=== PATIENT | female | born 1935 | race Caucasian/White ===

== ENCOUNTER 2018-01-25 09:44 | Inpatient (IN) | payer OTHER ==
[2018-01-25 10:34] LABS: Urine Appearance CLOUDY; Urine Bilirubin NEGATIVE (NEG); Urine Blood 1+ (NEG); Urine Color YELLOW; Urine Glucose NEGATIVE (NEG); Urine Protein 1+ (NEG); Urine Specific Gravity 1.015 (1.005-1.030); Urine Urobilinogen 0.2 mg/dL (0.2-1.0); Urine pH 5.5 (5.0-7.0)
[2018-01-25 10:35] LABS: Urine Microscopic Reflex ORDER UMIC
[2018-01-25 10:37] LABS: Absolute Lymphocytes (CBC) 1.9 K/uL (0.7-4.9); Absolute Monocytes 1.6 K/uL (0.1-1.3); Absolute Neutrophil 10.4 K/uL (1.8-8.0); Basophils % 0.5 % (0-1.3); Eosinophils % 0.7 % (0-4.4); Lymphocytes % 13.4 % (15.3-44.8); MCH 30.2 pg (27.0-35.0); MCV 87.5 fL (80-100); MPV 8.8 fL (7.6-11.3); Monocytes % 11.2 % (3.3-12.3)
--- NOTE | 2018-01-25 10:42 | EKG ---
Test Date: 2018-01-25 Test Time: 09:56:24 Tetryl Blender Operator: MINERVA MEASUREMENT RESULTS: Intervals: Rate: 88 CA: 154 QRSD: 80 QT: 336 QTc: 406 [place]: P: 24 CA: 154 QRS: -38 T: 11 INTERPRETIVE STATEMENTS: Normal sinus rhythm Possible Left atrial enlargement Left axis deviation Left ventricular hypertrophy Abnormal ECG Compared to ECG 02/19/2009 06:43:26 Left-axis deviation now present Electronically Signed On 01-25-18 10:41:34 CDT by Manuel Osorio
[2018-01-25 10:45] LABS: Urine Bacteria >50 /HPF (<20); Urine Culture Reflex Order REFLEXED; Urine Mucus 1+ /HPF (NONE SEEN)
[2018-01-25 10:48] LABS: Protime INR 1.14
--- NOTE | 2018-01-25 11:05 | RAD REPORT ---
EXAM DESCRIPTION: RAD - Chest Single View - 01/25/2018 10:27 am CLINICAL HISTORY: weakness Chest pain. COMPARISON: CHEST PA AND LAT 2 VIEW dated 11/25/2011 FINDINGS: Portable technique limits examination quality. The lungs are emphysematous but clear of acute infiltrate. The heart is upper limit normal in size. N o displaced fractures.S-shaped thoracolumbar scoliosis. IMPRESSION: COPD.
[2018-01-25 11:12] LABS: ALT/SGPT 79 U/L (12-78); AST/SGOT 59 U/L (15-37); Albumin 2.8 g/dL (3.4-5.0); Alkaline Phosphatase 249 U/L (45-117); BUN Blood Urea Nitrogen 25 mg/dL (7-18); Bicarbonate 23 mmol/L (21-32); Bilirubin Direct 0.4 mg/dL (0-0.2); Bilirubin Total 1.1 mg/dL (0.2-1.0); CKMB Creatine Kinase MB < 1.0 ng/mL (0.3-3.6); Creatine Phosphokinase 41 U/L (26-192); Glucose Level 118 mg/dL (74-106); Magnesium 1.8 mg/dL (1.8-2.4); NT PRO-BNP 778 pg/mL (<450); Potassium 3.9 mmol/L (3.5-5.1); Protein, Total 7.3 g/dL (6.4-8.2); Sodium Level 138 mmol/L (136-145)
[2018-01-25] MEDS ORDERED: ACETAMINOPHEN 500 MG TAB ONE (11:21)
[2018-01-25 11:23] LABS: Blood Morphology Comment NOT SEEN (NOT SEEN); Platelet Estimate ADEQ; Urine White Blood Cell Casts OK
[2018-01-25] MEDS ORDERED: NA CHLORIDE 0.9% 500 ML ONE (11:57)
--- NOTE | 2018-01-25 12:34 | RAD REPORT ---
EXAM DESCRIPTION: CT - Abdomen Pelvis W Contrast - 01/25/2018 12:21 pm CLINICAL HISTORY: Abdominal pain with nausea. COMPARISON: none. TECHNIQUE: Computed axial tomography of the abdomen pelvis was obtained. 100 cc Isovue-300 was admin istered intravenously. Oral contrast was not requested which limits evaluation of bowel. All CT scans are performed using dose optimization technique as appropriate and may include automated exposure control or mA/KV adjustment according to patient size. FINDINGS: Several hepatic granulomata are seen. Spleen, pancreas, adrenal and kidneys appear unremarkable. Diverticula stem from the colon without evidence of diverticulitis. The gallbladder is mildly distended. Hysterectomy has been performed IMPRESSION: Mild gallbladder distention. If clinically indicated further evaluation with ultrasound could be obtained Diverticulosis without evidence of diverticulitis
--- NOTE | 2018-01-25 13:13 | ER ---
Nurse's Notes [facility] Name: Sandra Gusman Age: 82 yrs Sex: Female : 1935 Arrival Date: 01/25/2018 Time: 09:47 Bed 19 Private MD: Boston Heredia B Diagnosis: Weakness;Abdominal and pelvic pain Presentation: 01/25 09:47 Presenting complaint: Patient states: generalized weakness, dizziness, SOB, nausea for sv a few days. Denies chest pain. Pt reports that they recently told her to stop taking her Ramipril d/t low blood pressure. Transition of care: patient was not received from another setting of care. Onset of symptoms was January 23, 2018. Care prior to arrival: None. 09:47 Method Of Arrival: Wheelchair sv 09:47 Acuity: ARIEL 3 sv 10:00 Risk Assessment: Do you want to hurt yourself or someone else? Patient reports no jl7 desire to harm self or others. Initial Sepsis Screen: Does the patient meet any 2 criteria? No. Patient's initial sepsis screen is negative. Does the patient have a suspected source of infection? No. Patient's initial sepsis screen is negative. Historical: - Allergies: 09:56 Codeine; sv - PMHx: 09:56 Hypertension; sv - PSHx: 09:56 Hysterectomy; sv - Immunization history:: Adult Immunizations up to date. - Social history:: Smoking status: Patient/guardian denies using tobacco. - Ebola Screening: : No symptoms or risks identified at this time. Screenin:00 Abuse screen: Denies threats or abuse. Denies injuries from another. Nutritional jl7 screening: No deficits noted. Tuberculosis screening: No symptoms or risk factors identified. Fall Risk IV access (20 points). Gait- Weak (10 pts.). Total Collins Fall Scale indicates Low Risk Score (25-44 pts). Fall prevention measures have been instituted. Side Rails Up X 2 Placed close to Nursing Station Frequent Obs/Assesments occuring Family Present and informed to notify staff if they need to leave bedside As available Patient and Family Educated on Fall Prevention Program and strategies. Assessment: 10:00 General: Appears in no apparent distress. uncomfortable, Behavior is calm, cooperative, jl7 appropriate for age. Pain: Denies pain. Neuro: Level of Consciousness is awake, alert, obeys commands, Oriented to person, place, time, situation. Cardiovascular: Heart tones S1 S2 present Patient's skin is warm and dry. Respiratory: Airway is patent Respiratory effort is even, unlabored, Respiratory pattern is regular, symmetrical. GI: Reports anorexia. : No signs and/or symptoms were reported regarding the genitourinary system. EENT: No signs and/or symptoms were reported regarding the EENT system. Derm: Skin is pink, warm \T\ dry. 11:00 Reassessment: No changes from previously documented assessment. Patient and/or family jl7 updated on plan of care and expected duration. Pain level reassessed. Patient is alert, oriented x 3, equal unlabored respirations, skin warm/dry/pink. 12:00 Reassessment: Patient and/or family updated on plan of care and expected duration. Pain jl7 level reassessed. Patient is alert, oriented x 3, equal unlabored respirations, skin warm/dry/pink. 13:15 Reassessment: Dr. Covarrubias at bedside discussing plan of care. jl7 13:45 Reassessment: Echo at bedside. jl7 14:30 Reassessment: Dr. Covarrubias notified of BP 174/72, ordered for administration of jl7 Carvedilol 3.125 mg now. Vital Signs: 09:56 BP 159 / 84; Pulse 92; Resp 22; Pulse Ox 96% ; sv 10:30 BP 162 / 77; Pulse 85; Resp 16; Pulse Ox 98% ; jl7 10:34 Temp 97.5(O); em1 11:00 BP 143 / 74; Pulse 79; Resp 14; Pulse Ox 100% ; jl7 11:30 BP 162 / 88; Pulse 82; Resp 18; Pulse Ox 98% ; jl7 12:30 BP 162 / 59; Pulse 70; Resp 16; Pulse Ox 98% ; jl7 14:00 BP 174 / 72; Pulse 68; Resp 14; Pulse Ox 98% on R/A; jl7 ED Course: 09:47 Patient arrived in ED. sb2 09:47 Boston Heredia MD is Private Physician. sb2 09:51 Carlos Enriquez RN is Primary Nurse. jl7 09:51 Craig Davis MD is Attending Physician. kdr 09:56 Triage completed. sv 09:57 Arm band placed on right wrist. Patient placed in an exam room, on a stretcher. sv 10:00 Patient has correct armband on for positive identification. Placed in gown. Bed in low jl7 position. Call light in reach. Side rails up X2. field technical specialist on. Pulse ox on. NIBP on. Warm blanket given. 10:20 Missed attempt(s): 22 gauge in right forearm. Bleeding controlled, band aid applied, jl7 catheter tip intact. 10:25 Initial lab(s) drawn, by me, sent to lab. Urine collected: clean catch specimen, jl7 cloudy. Inserted saline lock: 22 gauge in left forearm, using aseptic technique. Blood collected. 10:26 X-ray completed. Portable x-ray completed in exam room. Patient tolerated procedure ml well. 10:27 XRAY Chest (1 view) In Process Unspecified. EDMS 11:[address] vm2 12:21 CT Abd/Pelvis - W/Contrast In Process Unspecified. EDMS 12:21 CT completed. Patient moved back from CT. vr 13:12 Winston Covarrubias DO is Hospitalizing Provider. kdr 13:23 Note: us done portable/bedside. lc3 13:24 US Abdomen Limited In Process Unspecified. EDMS 14:42 No provider procedures requiring assistance completed. Patient admitted, IV remains in jl7 place. intact, No redness/swelling at site. Administered Medications: 12:38 Drug: NS 0.9% 500 ml Route: IV; Rate: bolus; Site: left forearm; jl7 13:30 Follow up: IV Status: Completed infusion jl7 Outcome: 13:12 Decision to Hospitalize by Provider. kdr 14:41 Admitted to Tele accompanied by tech, family with patient, via wheelchair, room 204, [facility] with chart, Report called to EUN Mcintyre 14:41 Condition: stable 14:41 Discharge instructions given to patient, Instructed on the need for admit, Demonstrated understanding of instructions. 14:43 Patient left the ED. [facility] Signatures: Dispatcher [employer] Gabriela Madrigal, RN EUN Craig Davis MD MD kdr Lopez, Nahum Navarro emAnita Ruth vr Thelma Wilson Jahala, RN RN [facility] Jamil, Anita vm2 Billeau, Sulma sb2
--- NOTE | 2018-01-25 13:13 | EDPHYS ---
Physician Documentation [facility] Name: Sandra Gusman Age: 82 yrs Sex: Female : 1935 Arrival Date: 01/25/2018 Time: 09:47 Bed 19 Private MD: Boston Heredia B ED Physician Craig Davis HPI: 01/25 15:41 This 82 yrs old Female presents to ER via Wheelchair with complaints of kdr General Weakness. 15:41 The patient does not have any focal c/o in the ED. She has been globally weak and not kdr eating for the last four days. Onset: The symptoms/episode began/occurred gradually, 4 day(s) ago. Severity of symptoms: At their worst the symptoms were mild in the emergency department the symptoms are unchanged. The patient has not experienced similar symptoms in the past. The patient has not recently seen a physician. Historical: - Allergies: 09:56 Codeine; sv - PMHx: 09:56 Hypertension; sv - PSHx: 09:56 Hysterectomy; sv - Immunization history:: Adult Immunizations up to date. - Social history:: Smoking status: Patient/guardian denies using tobacco. - Ebola Screening: : No symptoms or risks identified at this time. ROS: 15:41 Constitutional: Negative for fever, chills, and weight loss, Eyes: Negative for injury, kdr pain, redness, and discharge, ENT: Negative for injury, pain, and discharge, Neck: Negative for injury, pain, and swelling, Cardiovascular: Negative for chest pain, palpitations, and edema, Respiratory: Negative for shortness of breath, cough, wheezing, and pleuritic chest pain, Back: Negative for injury and pain, : Negative for injury, bleeding, discharge, and swelling, MS/Extremity: Negative for injury and deformity, Skin: Negative for injury, rash, and discoloration, Neuro: Negative for headache, weakness, numbness, tingling, and seizure activity. Psych: Negative for depression, anxiety, suicide ideation, homicidal ideation, and hallucinations, Allergy/Immunology: Negative for hives, rash, and allergies, Endocrine: Negative for neck swelling, polydipsia, polyuria, polyphagia, and marked weight changes, Hematologic/Lymphatic: Negative for swollen nodes, abnormal bleeding, and unusual bruising. Exam: 15:45 Constitutional: This is a well developed, well nourished patient who is awake, alert, kdr and in no acute distress. Head/Face: Normocephalic, atraumatic. Eyes: Pupils equal round and reactive to light, extra-ocular motions intact. Lids and lashes normal. Conjunctiva and sclera are non-icteric and not injected. Cornea within normal limits. Periorbital areas with no swelling, redness, or edema. Neck: Trachea midline, no thyromegaly or masses palpated, and no cervical lymphadenopathy. Supple, full range of motion without nuchal rigidity, or vertebral point tenderness. No Meningismus. Chest/axilla: Normal chest wall appearance and motion. Nontender with no deformity. No lesions are appreciated. Cardiovascular: Regular rate and rhythm with a normal S1 and S2. No gallops, murmurs, or rubs. Normal PMI, no JVD. No pulse deficits. Respiratory: Lungs have equal breath sounds bilaterally, clear to auscultation and percussion. No rales, rhonchi or wheezes noted. No increased work of breathing, no retractions or nasal flaring. Back: No spinal tenderness. No costovertebral tenderness. Full range of motion. Skin: Warm, dry with normal turgor. Normal color with no rashes, no lesions, and no evidence of cellulitis. MS/ Extremity: Pulses equal, no cyanosis. Neurovascular intact. Full, normal range of motion. Neuro: Awake and alert, GCS 15, oriented to person, place, time, and situation. Cranial nerves II-XII grossly intact. Motor strength 5/5 in all extremities. Sensory grossly intact. Cerebellar exam normal. Normal gait. Psych: Awake, alert, with orientation to person, place and time. Behavior, mood, and affect are within normal limits. 15:45 Abdomen/GI: Inspection: distension, that is mild, Bowel sounds: active, Palpation: soft, mild abdominal tenderness, in all quadrants. Vital Signs: 09:56 BP 159 / 84; Pulse 92; Resp 22; Pulse Ox 96% ; sv 10:30 BP 162 / 77; Pulse 85; Resp 16; Pulse Ox 98% ; jl7 10:34 Temp 97.5(O); em1 11:00 BP 143 / 74; Pulse 79; Resp 14; Pulse Ox 100% ; jl7 11:30 BP 162 / 88; Pulse 82; Resp 18; Pulse Ox 98% ; jl7 12:30 BP 162 / 59; Pulse 70; Resp 16; Pulse Ox 98% ; jl7 14:00 BP 174 / 72; Pulse 68; Resp 14; Pulse Ox 98% on R/A; jl7 MDM: 13:12 Patient medically screened. kdr 15:45 Data reviewed: vital signs, nurses notes, lab test result(s), radiologic studies. kdr Counseling: I had a detailed discussion with the patient and/or guardian regarding: the historical points, exam findings, and any diagnostic results supporting the discharge/admit diagnosis, lab results, radiology results, the need for outpatient follow up. 01/25 09:58 Order name: Basic Metabolic Panel; Complete Time: 11:28 kdr 01/25 09:58 Order name: CBC with Diff; Complete Time: 11:28 kdr 01/25 09:58 Order name: Ckmb; Complete Time: 11:28 kdr 01/25 09:58 Order name: CPK; Complete Time: 11:28 kdr 01/25 09:58 Order name: LFT's; Complete Time: 11:28 kdr 01/25 09:58 Order name: Magnesium; Complete Time: 11:28 kdr 01/25 09:58 Order name: NT PRO-BNP; Complete Time: 11:28 kdr 01/25 09:58 Order name: PT-INR; Complete Time: 11:28 kdr 01/25 09:58 Order name: Ptt, Activated; Complete Time: 11:28 kdr 01/25 09:58 Order name: Troponin (emerg Dept Use Only); Complete Time: 11:28 kdr 01/25 10:23 Order name: UA; Complete Time: 11:28 em1 01/25 10:37 Order name: Urine Microscopic Only; Complete Time: 11:28 EDMS 01/25 10:42 Order name: CBC Smear Scan; Complete Time: 11:28 EDMS 01/25 10:46 Order name: Urine Culture EDMS 01/25 09:58 Order name: XRAY Chest (1 view); Complete Time: 11:28 kdr 01/25 09:58 Order name: EKG; Complete Time: 09:58 kdr 01/25 09:58 Order name: Cardiac monitoring; Complete Time: 10:29 kdr 01/25 09:58 Order name: EKG - Nurse/Tech; Complete Time: 10:29 kdr 01/25 09:58 Order name: IV Saline Lock; Complete Time: 10:29 [facility] 01/25 09:58 Order name: Labs collected and sent; Complete Time: 10:29 [facility] 01/25 09:58 Order name: O2 Per Protocol; Complete Time: 10:29 [facility] 01/25 09:58 Order name: O2 Sat Monitoring; Complete Time: 10:29 [facility] 01/25 09:58 Order name: Urine Dipstick-Ancillary (obtain specimen); Complete Time: 10:28 [facility] 01/25 11:41 Order name: CT Abd/Pelvis - W/Contrast; Complete Time: 12:48 [facility] 01/25 11:42 Order name: Hepatitis Panel [facility] 01/25 11:42 Order name: Hepatitis Panel,Acute EDWA 01/25 12:49 Order name: Urinalysis [facility] 01/25 13:06 Order name: US Abdomen Limited [facility] 01/25 14:11 Order name: US; Complete Time: 15:44 EDMS Administered Medications: 12:38 Drug: NS 0.9% 500 ml Route: IV; Rate: bolus; Site: left forearm; [facility] emergency room 13:30 Follow up: IV Status: Completed infusion jl7 Disposition: 01/25/18 13:12 Hospitalization ordered by Winston Covarrubias for Observation. Preliminary diagnosis are Weakness, Abdominal and pelvic pain. - Bed requested for Telemetry/MedSurg (observation). - Status is Observation. 7 - Condition is Fair. - Problem is new. - Symptoms have improved. UTI on Admission? Yes Signatures: Dispatcher [employer] EDWA Gabriela Yu RN Honey Rodriguez RN EUN Craig Davis MD MD kdr Leal, Jahala, RN RN jl7 Brandie Callahan Corrections: (The following items were deleted from the chart) 13:15 13:12 Hospitalization Ordered by Winston Covarrubias DO for Observation. Preliminary eb diagnosis is Weakness; Abdominal and pelvic pain. Bed requested for Telemetry/MedSurg (observation). Status is Observation. Condition is Fair. Problem is new. Symptoms have improved. UTI on Admission? Yes. kdr 13:48 13:15 01/25/2018 13:12 Hospitalization Ordered by Winston Covarrubias DO for Observation. Preliminary diagnosis is Weakness; Abdominal and pelvic pain. Bed requested for Telemetry/MedSurg (observation). Status is Observation. Condition is Fair. Problem is new. Symptoms have improved. UTI on Admission? Yes. 14:43 13:48 01/25/2018 13:12 Hospitalization Ordered by Winston Covarrubias DO for Observation. jl7 Preliminary diagnosis is Weakness; Abdominal and pelvic pain. Bed requested for Telemetry/MedSurg (observation). Status is Observation. Condition is Fair. Problem is new. Symptoms have improved. UTI on Admission? Yes. dw
[2018-01-25] MEDS ORDERED: ONDANSETRON 4 MG/2 ML VIAL IV PRN (13:32)
--- NOTE | 2018-01-25 13:43 | P.HP ---
Certification for Inpatient Patient admitted to: Observation With expected LOS: <2 Midnights Patient will require the following post-hospital care: None Practitioner: I am a practitioner with admitting privileges, knowledge of patient current condition, hospital course, and medical plan of care. Services: Services provided to patient in accordance with Admission requirements found in Title 42 Section 412.3 of the Code of Federal Regulations Patient History Date of Service: 01/25/18 Primary Care Provider: Dr. Heredia Reason for admission: Fatigue, poor appetite History of Present Illness: 82-year-old female presented to the ER with fatigue and poor appetite. Patient reports that this all started last week. She saw her PCP on . Apparently her blood pressure was low at that time. She was taken off her blood pressure medication including ramipril 20 mg BID and hydrochlorothiazide 25 mg daily. Since that time she has had poor appetite. Weakness noted. Some nausea was noted this morning. She reported some abdominal discomfort. No diarrhea, fever or chills noted. Patient had some dizziness. The patient came to the ER for further evaluation. In the ER patient was evaluated. Blood pressures were slightly elevated. White count 13.9, hemoglobin 14.5. Percent neutrophils elevated at 74 with absolute neutrophils at 10. BUN of 25, creatinine 1.2 with a GFR 43. Glucose 118. Total bilirubin 1.1, direct bilirubin 0.4, AST of 59, ALT 79. BNP 778. Troponin less than 0.02. Chest x-ray showed no pneumonia. Abdominal CT scan showed mild distention of the gallbladder otherwise unremarkable. Patient was given IV fluids in the emergency room. The patient was admitted for observation. When I saw the patient ER, she appeared comfortable. She denies any nausea, vomiting or abdominal pain at this time. Patient with history of hypertension, arthritis, osteoarthritis and chronic steroid use. Patient reports a chronic cough. Home medications list reviewed: Yes - Past Medical/Surgical History Diabetic: No -: Hypertension -: Chronic arthritis, chronic steroid use -: Hyperlipidemia -: Hysterectomy -: Appendectomy Psychosocial/ Personal History: The patient lives by herself. She is a . She has 2 children. - Family History Family History: Reviewed- Non-Contributory - Social History Smoking Status: Never smoker Alcohol use: No CD- Drugs: No Caffeine use: Yes Place of Residence: Home Review of Systems General: Weakness, Malaise Eyes: Unremarkable ENT: Unremarkable Respiratory: Cough, Unremarkable Cardiovascular: Unremarkable Gastrointestinal: Nausea, As per HPI Genitourinary: As per HPI Musculoskeletal: Unremarkable Integumentary: Unremarkable Neurological: Unremarkable Lymphatics: Unremarkable Physical Examination - Physical Exam General: Alert, In no apparent distress, Oriented x3, Cooperative HEENT: Atraumatic, Normocephalic, PERRLA, Other (Dry mucous membranes) Neck: Supple, No Thyromegaly Respiratory: Clear to auscultation bilaterally, Normal air movement Cardiovascular: Normal pulses, Regular rate/rhythm Gastrointestinal: Normal bowel sounds, Soft and benign, Non-distended, No tenderness, No masses, No rebound, No guarding Musculoskeletal: No contractures, No erythema, No tenderness, No warmth Integumentary: No tenderness/swelling, No erythema, No warmth, No cyanosis Neurological: Normal speech, Normal strength at 5/5 x4 extr, Normal tone, Normal affect - Studies Laboratory Data (last 24 hrs) 01/25/18 10:25: PT 13.5 H, INR 1.14, APTT 24.1 L 01/25/18 10:25: WBC 13.9 H, Hgb 14.5, Hct 42.0, Plt Count 231 01/25/18 10:25: Sodium 138, Potassium 3.9, BUN 25 H, Creatinine 1.20, Glucose 118 H, Magnesium 1.8, Total Bilirubin 1.1 H, AST 59 H, ALT 79 H, Alkaline Phosphatase 249 H Assessment and Plan - Problems (Diagnosis) (1) UTI (urinary tract infection) Current Visit: Yes Status: Acute Plan: Fatigue and poor appetite likely from UTI. Will start Rocephin. Urine and blood cultures obtained. Will start IV fluids. Will monitor electrolytes. Will reassess tomorrow. Anticipate discharge in the next 1-2 days. Qualifiers: Urinary tract infection type: site unspecified Hematuria presence: without hematuria Qualified Code(s): N39.0 - Urinary tract infection, site not specified (2) Fatigue Current Visit: Yes Status: Acute Plan: Will check tsh. Patient likely with UTI. Mild dehydration noted. Continue with antibiotics, IV fluids. Patient with history of hypertension. Adjustments in medications have been done. Will check echocardiogram. Will send for hepatitis panel. Qualifiers: Fatigue type: unspecified Qualified Code(s): R53.83 - Other fatigue (3) Hyperbilirubinemia Current Visit: Yes Status: Acute Plan: Likely from dehydration. Will continue monitor and assess. Abdominal ultrasound obtained. CT scan showed mild gallbladder distension. Doubt cholecystitis. (4) Elevated liver function tests Current Visit: Yes Status: Acute Plan: Mild gallbladder distention noted. Patient on Crestor. Will hold Crestor this time. Will check hepatitis panel. Obtain abdominal ultrasound to further assess. (5) Renal insufficiency Current Visit: Yes Status: Acute Plan: Likely from dehydration and recent Damian inhibitor and hydrochlorothiazide use. Will discontinue DAMIAN-inhibitor and hydrochlorothiazide. Patient with likely Damian cough. Will provide IV fluids. Will check echocardiogram to further evaluate her hypertension. (6) Hypertension Current Visit: Yes Status: Chronic Plan: Medications adjusted due to renal insufficiency and DAMIAN-inhibitor cough. Lisinopril and hydrochlorothiazide has been discontinued. Provide carvedilol for blood pressure control. Obtain echocardiogram. Qualifiers: Hypertension type: essential hypertension Qualified Code(s): I10 - Essential (primary) hypertension (7) DAMIAN-inhibitor cough Current Visit: Yes Status: Acute Plan: Discontinued DAMIAN-inhibitor. Continue as above. (8) Hyperlipidemia Current Visit: Yes Status: Chronic Plan: Will check fasting lipid panel. Will hold Crestor at this time due to elevated liver function. Qualifiers: Hyperlipidemia type: unspecified Qualified Code(s): E78.5 - Hyperlipidemia , unspecified (9) Arthritis Current Visit: Yes Status: Chronic Plan: Provide medication for pain. Patient on chronic steroids. Will restart steroids. (10) Chronic steroid use Current Visit: Yes Status: Chronic Plan: Patient takes prednisone 2 mg daily. Will restart. Will recommend steroids to be tapered off over time. This can be done as an outpatient. (11) GERD (gastroesophageal reflux disease) Current Visit: Yes Status: Suspected Plan: Will provide PPI due to chronic steroid use. Qualifiers: Esophagitis presence: esophagitis presence not specified Qualified Code(s) : K21.9 - Gastro-esophageal reflux disease without esophagitis (12) Dehydration Current Visit: Yes Status: Acute Plan: Continue IV fluids. Will monitor and adjust medication and electrolytes. Discharge Plan: Home Plan to discharge in: 24 Hours - Advance Directives Does patient have a Living Will: Yes Does patient have a Durable POA for Healthcare: Yes - Code Status/Comfort Care Code Status Assessed: Yes (Patient full code.) Time Spent Managing Pts Care (In Minutes): 55
--- NOTE | 2018-01-25 14:10 | RAD REPORT ---
EXAM DESCRIPTION: US - Abdomen Exam Complete - 01/25/2018 1:58 pm CLINICAL HISTORY: Abdominal pain. ABD PAIN COMPARISON: Abdomen Pelvis Scan dated 11/24/2016; Abdomen Pelvis W Contrast dated 01/25/2018 FINDINGS: Mild fatty liver infiltration suspected. No focal liver lesions or intrahepatic biliary di latation is seen. The gallbladder demonstrates no gallstones, pericholecystic fluid or gallbladder wall thickening. Co mmon bile duct is normal in caliber measuring 3 mm. Both kidneys are normal in size, shape and echotexture. No hydronephrosis, focal lesion of concern or perinephric fluid. The spleen is normal in size measuring 10 cm. The pancreas and aorta are obscured by bowel gas. The visualized aspects of the IVC are grossly normal. IMPRESSION: Fatty liver. Negative gallbladder/biliary tree findings.
[2018-01-25] MEDS ORDERED: CARVEDILOL 6.25 MG TAB ONE (14:38)
[2018-01-25] MEDS: ENOXAPARIN 40 MG/0.4 ML SQ SCH (16:09)
[2018-01-25] MEDS: CEFTRIAXONE/SWI 1gm 1 GM/10 ML SYR IVP SCH (16:10)
[2018-01-25] MEDS: NA CHLORIDE 0.9% 1,000 ML IV SCH ×3 (16:17→23:45)
--- NOTE | 2018-01-25 16:24 | ECHO ---
HEIGHT: 4 ft 11 in WEIGHT: 138 lb 8 oz DATE OF STUDY: 01/25/[address]: Winston Covarrubias DO 2-DIMENSIONAL: YES M.MODE: YES DOPPLER: YES COLOR FLOW: YES TDS: PORTABLE: DEFINITY: BUBBLE STUDY: DIAGNOSIS: HYPERTENSION, FATIGUE CARDIAC HISTORY: CATHERIZATION: NO SURGERY: NO PROSTHETIC VALVE: NO PACEMAKER: NO MEASUREMENTS (cm) DIASTOLIC (NORMALS) SYSTOLIC (NORMALS) IVSd 1.0 (0.6-1.2) LA Diam 3.5 (1.9-4.0) LVEF 60-65% LVIDd 3.5 (3.5-5.7) LVIDs 2.6 (2.0-3.5) %FS 25% LVPWd 0.9 (0.6-1.2) Ao Diam 2.6 (2.0-3.7) 2 DIMENSIONAL ASSESSMENT: RIGHT ATRIUM: NORMAL LEFT ATRIUM: NORMAL RIGHT VENTRICLE: NORMAL LEFT VENTRICLE: NORMAL TRICUSPID VALVE: NORMAL MITRAL VALVE: MITRAL ANNULAR CALCIFICATION PULMONIC VALVE: NORMAL AORTIC VALVE: NORMAL PERICARDIAL EFFUSION: NONE AORTIC ROOT: NORMAL LEFT VENTRICULAR WALL MOTION: NORMAL DOPPLER/COLOR FLOW: MILD TRICUSPID REGURGITATION. NORMAL RIGHT VENTRICULAR SYSTOLIC PRESSURE. COMMENTS: NORMAL LEFT VENTRICULAR EJECTION FRACTION. MITRAL ANNULAR CALCIFICATION. OTHERWISE NORMAL TWO DIMENSIONAL ECHOCARDIOGRAM. MILD TRICUSPID REGURGITATION. TECHNOLOGIST: SURJIT CROWLEY
[2018-01-25] MEDS ORDERED: POTASSIUM 25 MEQ EFFERV TAB PO ONE (17:00)
[2018-01-25] MEDS ORDERED: MAGNESIUM SULFATE 1 gm IVPB 1 GM/100 ML BAG IV ONE (17:00)
[2018-01-25] MEDS: CARVEDILOL 3.125 MG TAB PO SCH (17:06)
[2018-01-25] MEDS: BENZONATATE 100 MG CAP PO PRN (18:44)
[2018-01-25] MEDS: ACETAMINOPHEN 500 MG TAB PO PRN (18:56)
[2018-01-25] MEDS ORDERED: ZOLPIDEM TARTRATE 6.25 MG PO SCH (21:00)
[2018-01-25] MEDS ORDERED: ZOLPIDEM TARTRATE 5 MG TABLET ONE (22:32)
[2018-01-26] MEDS: CARVEDILOL 3.125 MG TAB PO SCH ×2 (05:41→18:00)
[2018-01-26 05:59] LABS: Absolute Lymphocytes (CBC) 1.2 K/uL (0.7-4.9); Absolute Monocytes 0.9 K/uL (0.1-1.3); Absolute Neutrophil 28.3 K/uL (1.8-8.0); Basophils % 0.2 % (0-1.3); Eosinophils % 0.3 % (0-4.4); Hematocrit 35.5 % (36.0-45.0); MCV 88.4 fL (80-100); MPV 8.9 fL (7.6-11.3); Monocytes % 2.9 % (3.3-12.3); RBC Red Blood Cell Count 4.01 M/uL (3.86-4.86)
[2018-01-26 06:09] LABS: Albumin 2.1 g/dL (3.4-5.0); Bilirubin Total 0.9 mg/dL (0.2-1.0); Magnesium 2.3 mg/dL (1.8-2.4); Potassium 4.7 mmol/L (3.5-5.1); Protein, Total 5.8 g/dL (6.4-8.2); Thyroid Stimulating Hormone 1.18 uIU/mL (0.36-3.74)
[2018-01-26] MEDS: PANTOPRAZOLE 40MG TABLET PO SCH (07:10)
[2018-01-26 08:23] LABS: Blood Morphology Comment NOT SEEN (NOT SEEN); Platelet Estimate ADEQ
[2018-01-26] MEDS: CEFTRIAXONE/SWI 1gm 1 GM/10 ML SYR IVP SCH (09:00)
--- NOTE | 2018-01-26 09:36 | P.PN ---
Subjective Date of Service: 01/26/18 Primary Care Provider: Dr. Heredia Chief Complaint: Fatigue, poor appetite Subjective: Doing well (Feeling better. Slight fatigue. Cough noted.) Physical Examination - Vital Signs Temperature: 97.4 F Blood Pressure: 116/58 Pulse: 70 Respirations: 20 Pulse Ox (%): 97 - Physical Exam General: Alert, In no apparent distress, Oriented x3, Cooperative HEENT: Atraumatic Neck: Supple Respiratory: Clear to auscultation bilaterally, Normal air movement Cardiovascular: Normal pulses, Regular rate/rhythm Gastrointestinal: Normal bowel sounds, Soft and benign, Non-distended, No tenderness, No masses, No rebound, No guarding Musculoskeletal: No erythema, No tenderness, No warmth Integumentary: No tenderness/swelling, No erythema, No warmth, No cyanosis Neurological: Normal speech, Normal strength at 5/5 x4 extr, Normal tone, Normal affect - Studies Laboratory Data (last 24 hrs) 01/25/18 10:25: PT 13.5 H, INR 1.14, APTT 24.1 L 01/25/18 10:25: WBC 13.9 H, Hgb 14.5, Hct 42.0, Plt Count 231 01/25/18 10:25: Sodium 138, Potassium 3.9, BUN 25 H, Creatinine 1.20, Glucose 118 H, Magnesium 1.8, Total Bilirubin 1.1 H, AST 59 H, ALT 79 H, Alkaline Phosphatase 249 H Medications List Reviewed: Yes Assessment & Plan - Problems (Diagnosis) (1) UTI (urinary tract infection) Current Visit: Yes Status: Acute Plan: Fatigue and poor appetite likely from UTI. Will change Rocephin to Zosyn for better coverage. White count elevated. Will check lactic acid. Pro calcitonin elevated. Urine and blood cultures obtained. Will continue IV fluids. Will reassess tomorrow. Qualifiers: Urinary tract infection type: site unspecified Hematuria presence: without hematuria Qualified Code(s): N39.0 - Urinary tract infection, site not specified (2) Fatigue Current Visit: Yes Status: Acute Plan: Continue with antibiotics for UTI. Continue IV fluids. Abdominal ultrasound shows no hydronephrosis. Abdominal evaluation unremarkable. Await urine and blood cultures. Will check lactic acid. Pro calcitonin elevated. Qualifiers: Fatigue type: unspecified Qualified Code(s): R53.83 - Other fatigue (3) Hyperbilirubinemia Current Visit: Yes Status: Acute Plan: This has improved. Abdominal ultrasound unremarkable. (4) Elevated liver function tests Current Visit: Yes Status: Acute Plan: This has improved. Abdominal sound negative. Lab sent for Hepatitis. (5) Renal insufficiency Current Visit: Yes Status: Acute Plan: Likely from dehydration and recent Damian inhibitor and hydrochlorothiazide use. Renal function remained stable. Patient may have underlying chronic renal disease. DAMIAN-inhibitor and hydrochlorothiazide has been discontinued. Renal ultrasound shows no hydronephrosis. Will monitor closely. Patient may require nephrology consultation. Will reassess tomorrow. (6) Hypertension Current Visit: Yes Status: Chronic Plan: Medications adjusted due to renal insufficiency and DAMIAN-inhibitor cough. Lisinopril and hydrochlorothiazide has been discontinued. Blood pressure stable on carvedilol. Echocardiogram unremarkable. Qualifiers: Hypertension type: essential hypertension Qualified Code(s): I10 - Essential (primary) hypertension (7) DAMIAN-inhibitor cough Current Visit: Yes Status: Acute Plan: Discontinued DAMIAN-inhibitor. Continue as above. (8) Hyperlipidemia Current Visit: Yes Status: Chronic Plan: Continue to hold Crestor. Qualifiers: Hyperlipidemia type: unspecified Qualified Code(s): E78.5 - Hyperlipidemia , unspecified (9) Arthritis Current Visit: Yes Status: Chronic Plan: Will provide medication as needed. Patient on chronic steroids. This has been restarted. Steroid should be tapered off over time. (10) Chronic steroid use Current Visit: Yes Status: Chronic Plan: Patient takes prednisone 2 mg daily. Will restart. Will recommend steroids to be tapered off over time. This can be done as an outpatient. (11) GERD (gastroesophageal reflux disease) Current Visit: Yes Status: Suspected Plan: Will provide PPI due to chronic steroid use. Qualifiers: Esophagitis presence: esophagitis presence not specified Qualified Code(s) : K21.9 - Gastro-esophageal reflux disease without esophagitis (12) Dehydration Current Visit: Yes Status: Acute Plan: Continue IV fluids. Pro calcitonin elevated. Will check lactic acid. Continue IV fluids and antibiotic therapy. Await urine and blood cultures. (13) Sepsis Current Visit: Yes Status: Suspected Plan: Suspect early sepsis. Pro calcitonin elevated. Urine and blood cultures obtained. IV antibiotic therapy adjusted. (14) Chronic renal disease Current Visit: Yes Status: Suspected Plan: Will monitor closely. Will consider nephrology consultation if no improvement tomorrow. Qualifiers: Chronic kidney disease stage: stage 2 (mild) Qualified Code(s): N18.2 - Chronic kidney disease, stage 2 (mild) (15) COPD (chronic obstructive pulmonary disease) Current Visit: Yes Status: Suspected Plan: Patient with chronic cough. Chest x-ray showed COPD changes. Patient with secondhand smoke exposure. Will provide medication. Patient will need pulmonology evaluation with pulmonary function test as an outpatient. Qualifiers: COPD type: chronic bronchitis Chronic bronchitis type: unspecified Qualified Code(s): J42 - Unspecified chronic bronchitis Discharge Plan: Home Plan to discharge in: Greater than 2 days Time Spent Managing Pts Care (In Minutes): 55
[2018-01-26] MEDS ORDERED: ALBUTEROL 2.5 MG/3 ML NEB SOL NEB PRN (09:38)
[2018-01-26] MEDS ORDERED: IPRATROPIUM BROM 0.5MG/2.5ML NEB PRN (09:38)
[2018-01-26] MEDS: NA CHLORIDE 0.9% 1,000 ML IV SCH ×3 (10:00→21:06)
[2018-01-26] MEDS: ENOXAPARIN 40 MG/0.4 ML SQ SCH (10:15)
[2018-01-26] MEDS: predniSONE 1 MG TAB PO SCH (10:15)
--- NOTE | 2018-01-26 10:18 | RAD REPORT ---
EXAM DESCRIPTION: RAD - Chest Pa And Lat (2 Views) - 01/26/2018 9:29 am CLINICAL HISTORY: cough Chest pain. COMPARISON: Chest Single View dated 01/25/2018; CHEST PA AND LAT 2 VIEW dated 11/25/2011 FINDINGS: Interstitial prominence is noted superimposed on diffuse COPD. Findings are likely chronic . No focal infiltrate is detected. The heart is normal in size. No displaced fractures. Tortuous thor acic aorta with atherosclerosis noted. IMPRESSION: COPD with fibrotic changes noted bilaterally, likely chronic.
[2018-01-26] MEDS: PIPER/TAZO/NS 2.25gm 2.25 GM/50 ML BAG IVPB SCH (18:19)
[2018-01-26] MEDS: BENZONATATE 100 MG CAP PO PRN (18:25)
[2018-01-26] MEDS: ARFORMOTEROL TARTRATE 15 MCG/2 ML VIAL.NEB NEB SCH (20:04)
[2018-01-26] MEDS: ZOLPIDEM TARTRATE 5 MG TABLET PO SCH (21:05)
[2018-01-27] MEDS: PIPER/TAZO/NS 2.25gm 2.25 GM/50 ML BAG IVPB SCH ×2 (00:59→09:52)
[2018-01-27] MEDS: BENZONATATE 100 MG CAP PO PRN ×3 (00:59→21:49)
[2018-01-27 05:13] LABS: Absolute Lymphocytes (CBC) 2.1 K/uL (0.7-4.9); Absolute Neutrophil 13.8 K/uL (1.8-8.0); Basophils % 0.2 % (0-1.3); Eosinophils % 2.1 % (0-4.4); Hematocrit 34.1 % (36.0-45.0); Lymphocytes % 12.1 % (15.3-44.8); MCV 89.1 fL (80-100); MPV 8.7 fL (7.6-11.3); Monocytes % 5.6 % (3.3-12.3); RBC Red Blood Cell Count 3.83 M/uL (3.86-4.86)
[2018-01-27 05:37] LABS: Albumin 2.2 g/dL (3.4-5.0); Bilirubin Total 0.8 mg/dL (0.2-1.0); Magnesium 2.2 mg/dL (1.8-2.4); Potassium 4.1 mmol/L (3.5-5.1); Protein, Total 5.7 g/dL (6.4-8.2)
[2018-01-27] MEDS: CARVEDILOL 3.125 MG TAB PO SCH ×2 (05:43→18:36)
[2018-01-27] MEDS: PANTOPRAZOLE 40MG TABLET PO SCH (05:44)
[2018-01-27] MEDS: NA CHLORIDE 0.9% 1,000 ML IV SCH (05:44)
[2018-01-27] MEDS: guaiFENesin 100 MG/5 ML UCUP PO PRN ×3 (06:10→21:50)
[2018-01-27] MEDS: ARFORMOTEROL TARTRATE 15 MCG/2 ML VIAL.NEB NEB SCH ×2 (07:47→19:35)
[2018-01-27] MEDS: predniSONE 1 MG TAB PO SCH (09:52)
[2018-01-27] MEDS: ENOXAPARIN 30 MG/0.3 ML SQ SCH (09:53)
--- NOTE | 2018-01-27 10:34 | P.PN ---
Subjective Date of Service: 01/27/18 Primary Care Provider: Dr. Heredia Chief Complaint: Fatigue, poor appetite Subjective: Other (Patient with some fatigue this morning. Patient afebrile. So far blood cultures negative. Urine culture positive for E coli.) Physical Examination - Vital Signs Temperature: 98.3 F Blood Pressure: 130/60 Pulse: 64 Respirations: 18 Pulse Ox (%): 95 - Physical Exam General: Alert, In no apparent distress, Oriented x3, Cooperative HEENT: Atraumatic Neck: Supple Respiratory: Clear to auscultation bilaterally, Normal air movement Cardiovascular: Normal pulses, Regular rate/rhythm Gastrointestinal: Normal bowel sounds, Soft and benign, Non-distended, No tenderness, No masses, No rebound, No guarding Musculoskeletal: No erythema, No tenderness, No warmth Integumentary: No tenderness/swelling, No erythema, No warmth, No cyanosis Neurological: Normal speech, Normal strength at 5/5 x4 extr, Normal tone, Normal affect - Studies Microbiology Data (last 24 hrs): 01/25/18 10:15 Clean Catch Urine [place] Count - Final >100,000 CFU/ML. 01/25/18 10:15 Clean Catch Urine - Final Escherichia Coli 01/25/18 16:03 Blood - Blood Anaerobic Blood Culture - Final 01/25/18 15:23 Blood - Blood Anaerobic Blood Culture - Final Medications List Reviewed: Yes Assessment & Plan - Problems (Diagnosis) (1) UTI (urinary tract infection) Onset Date: 01/26/18 Current Visit: Yes Status: Acute Plan: Urine culture positive for E coli. White count improved. Patient afebrile. So far blood cultures negative. Will continue with IV fluids. Will transition off Zosyn to Cipro orally. Will ambulate patient physical therapy. Will reassess this afternoon. Possible discharge in the next 24 hr. UTI prevention addressed in detail. Patient reports that she has been cleaning herself from the back to the front. This is the likely cause of her UTI. Family at bedside Qualifiers: Urinary tract infection type: site unspecified Hematuria presence: without hematuria Qualified Code(s): N39.0 - Urinary tract infection, site not specified (2) Fatigue Onset Date: 01/26/18 Current Visit: Yes Status: Acute Plan: Secondary to UTI . Continue as above. Qualifiers: Fatigue type: unspecified Qualified Code(s): R53.83 - Other fatigue (3) Hyperbilirubinemia Onset Date: 01/26/18 Current Visit: Yes Status: Acute Plan: This has improved. Abdominal ultrasound unremarkable. (4) Elevated liver function tests Onset Date: 01/26/18 Current Visit: Yes Status: Acute Plan: This has improved. Abdominal sound negative. Lab sent for Hepatitis. (5) Renal insufficiency Onset Date: 01/26/18 Current Visit: Yes Status: Acute Plan: Acute renal injury likely from dehydration, ZOLTAN-inhibitor, hydrochlorothiazide, UTI. Renal function improved. Renal ultrasound shows no hydronephrosis. Continue to hold ZOLTAN-inhibitor and hydrochlorothiazide. UTI identified. Continue as above. (6) Hypertension Onset Date: 01/26/18 Current Visit: Yes Status: Chronic Plan: Medications adjusted due to renal insufficiency and ZOLTAN-inhibitor cough. Lisinopril and hydrochlorothiazide has been discontinued. Blood pressure stable on carvedilol. Echocardiogram unremarkable. Qualifiers: Hypertension type: essential hypertension Qualified Code(s): I10 - Essential (primary) hypertension (7) ZOLTAN-inhibitor cough Onset Date: 01/26/18 Current Visit: Yes Status: Acute Plan: Discontinued ZOLTAN-inhibitor. Continue as above. (8) Hyperlipidemia Onset Date: 01/26/18 Current Visit: Yes Status: Chronic Plan: Continue to hold Crestor. Qualifiers: Hyperlipidemia type: unspecified Qualified Code(s): E78.5 - Hyperlipidemia , unspecified (9) Arthritis Onset Date: 01/26/18 Current Visit: Yes Status: Chronic Plan: Will provide medication as needed. Patient on chronic steroids. This has been restarted. Steroid should be tapered off over time as an outpatient. (10) Chronic steroid use Onset Date: 01/26/18 Current Visit: Yes Status: Chronic Plan: Patient takes prednisone 2 mg daily. Will restart. Will recommend steroids to be tapered off over time. This can be done as an outpatient. (11) GERD (gastroesophageal reflux disease) Onset Date: 01/26/18 Current Visit: Yes Status: Suspected Plan: Will provide PPI due to chronic steroid use. Qualifiers: Esophagitis presence: esophagitis presence not specified Qualified Code(s) : K21.9 - Gastro-esophageal reflux disease without esophagitis (12) Dehydration Onset Date: 01/26/18 Current Visit: Yes Status: Acute Plan: Secondary to above. Will continue with IV fluids. (13) Sepsis Onset Date: 01/26/18 Current Visit: Yes Status: Suspected Plan: Pro calcitonin elevated. So far blood cultures negative. Urine positive for E coli. Continue as above. Qualifiers: Sepsis type: Escherichia coli Qualified Code(s): A41.51 - Sepsis due to Escherichia coli [E. coli] (14) Chronic renal disease Onset Date: 01/26/18 Current Visit: Yes Status: Suspected Plan: Will monitor closely. Suspect chronic renal disease. Some improvement in renal function noted with hydration. Future medications will need to be renally dosed. No nonsteroidal anti-inflammatories is recommended in the future. Qualifiers: Chronic kidney disease stage: stage 2 (mild) Qualified Code(s): N18.2 - Chronic kidney disease, stage 2 (mild) (15) COPD (chronic obstructive pulmonary disease) Onset Date: 01/26/18 Current Visit: Yes Status: Suspected Plan: Patient with chronic cough. Chest x-ray showed COPD changes. Patient with secondhand smoke exposure. Will continue with COPD treatment. Patient will need pulmonary evaluation with PFTs as an outpatient. Cough improved. Qualifiers: COPD type: chronic bronchitis Chronic bronchitis type: unspecified Qualified Code(s): J42 - Unspecified chronic bronchitis (16) Acute renal injury Current Visit: Yes Status: Acute Plan: Continue as above. Likely from dehydration, UTI and medication. Discharge Plan: Home Plan to discharge in: 24 Hours Time Spent Managing Pts Care (In Minutes): 55
[2018-01-27] MEDS: ACETAMINOPHEN 500 MG TAB PO PRN ×2 (11:46→21:48)
[2018-01-27] MEDS: NACHLORIDE 0.45% 1,000 ML IV SCH ×2 (11:46→21:44)
[2018-01-27] MEDS ORDERED: LOPERAMIDE HCL 2 MG CAPSULE PO PRN (18:20)
[2018-01-27] MEDS ORDERED: ALPRAZOLAM 0.25 MG TABLET PO PRN (18:20)
[2018-01-27] MEDS: LACTOBACILLUS/ACIDOPHILUS TAB PO SCH (18:34)
[2018-01-27] MEDS: ZOLPIDEM TARTRATE 5 MG TABLET PO SCH (21:50)
[2018-01-27] MEDS: CIPROFLOXACIN HCL 250 MG TAB PO SCH (21:55)
[2018-01-28 03:49] LABS: HBsAG Nonreactive (Nonreactive); Hepatitis A IgM Antibody Nonreactive
[2018-01-28] MEDS: PANTOPRAZOLE 40MG TABLET PO SCH (05:49)
[2018-01-28] MEDS: CARVEDILOL 3.125 MG TAB PO SCH (05:50)
[2018-01-28 06:20] LABS: Absolute Lymphocytes (CBC) 1.1 K/uL (0.7-4.9); Absolute Monocytes 0.2 K/uL (0.1-1.3); Absolute Neutrophil 14.3 K/uL (1.8-8.0); Basophils % 0.2 % (0-1.3); Eosinophils % 0.8 % (0-4.4); Hematocrit 37.7 % (36.0-45.0); Lymphocytes % 7.2 % (15.3-44.8); MCH 30.5 pg (27.0-35.0); MCV 89.9 fL (80-100); MPV 8.7 fL (7.6-11.3); Monocytes % 1.1 % (3.3-12.3)
[2018-01-28 06:29] LABS: Albumin 2.4 g/dL (3.4-5.0); Magnesium 2.2 mg/dL (1.8-2.4); Potassium 4.6 mmol/L (3.5-5.1); Protein, Total 6.5 g/dL (6.4-8.2)
[2018-01-28] MEDS: ARFORMOTEROL TARTRATE 15 MCG/2 ML VIAL.NEB NEB SCH (08:21)
[2018-01-28] MEDS: ENOXAPARIN 30 MG/0.3 ML SQ SCH (08:54)
[2018-01-28] MEDS: NACHLORIDE 0.45% 1,000 ML IV SCH (08:54)
[2018-01-28] MEDS: LACTOBACILLUS/ACIDOPHILUS TAB PO SCH ×2 (08:55→14:46)
[2018-01-28] MEDS: predniSONE 1 MG TAB PO SCH (08:55)
[2018-01-28] MEDS: CIPROFLOXACIN HCL 250 MG TAB PO SCH (08:55)
--- NOTE | 2018-01-28 10:15 | P.PN ---
Subjective Date of Service: 01/28/18 Primary Care Provider: Dr. Heredia Chief Complaint: Fatigue, poor appetite Subjective: Other (Patient still reports some body aches. Patient not comfortable in bed. Patient with poor oral intake. Patient not ambulating well. Patient with history are if arthritis. Patient lives at home by herself. Family at bedside.) Physical Examination - Vital Signs Temperature: 98.6 F Blood Pressure: 121/60 Pulse: 67 Respirations: 20 Pulse Ox (%): 96 - Physical Exam General: Alert, Other (Increased anxiety today.) HEENT: Atraumatic Neck: Supple Respiratory: Clear to auscultation bilaterally, Normal air movement Cardiovascular: Normal pulses, Regular rate/rhythm Gastrointestinal: Normal bowel sounds, Soft and benign, Non-distended, No tenderness, No masses, No rebound, No guarding Musculoskeletal: No erythema, No tenderness, No warmth Integumentary: No erythema, No warmth, No cyanosis Neurological: Normal speech, Normal strength at 5/5 x4 extr, Normal tone, Abnormal affect (Increase anxiety noted) - Studies Microbiology Data (last 24 hrs): 01/25/18 10:15 Clean Catch Urine [place] Count - Final >100,000 CFU/ML. 01/25/18 10:15 Clean Catch Urine - Final Escherichia Coli Medications List Reviewed: Yes Assessment & Plan - Problems (Diagnosis) (1) UTI (urinary tract infection) Onset Date: 01/26/18 Current Visit: Yes Status: Acute Plan: Urine culture positive for E coli. White count improved. Blood cultures negative. Patient now on Cipro. Chest x-ray shows no pneumonia. Patient with increased agitation and anxiety. Encourage ambulation an oral intake. Will reassess later. Will have physical therapy ambulate patient. Patient does not appear septic. Case discussed with patient and family. Will need to consider skilled placement if recommended by physical therapy otherwise patient may require home health and physical therapy at discharge. Anticipate discharge as early as today if significantly improved. Otherwise will consider skilled placement. Case discussed at length with social science manager. I will turn the service over to Dr. Becker tomorrow. I will go over the plan of care with her. Qualifiers: Urinary tract infection type: site unspecified Hematuria presence: without hematuria Qualified Code(s): N39.0 - Urinary tract infection, site not specified (2) Fatigue Onset Date: 01/26/18 Current Visit: Yes Status: Acute Plan: Secondary to UTI . Continue as above. Encourage ambulation and oral intake. Qualifiers: Fatigue type: unspecified Qualified Code(s): R53.83 - Other fatigue (3) Hyperbilirubinemia Onset Date: 01/26/18 Current Visit: Yes Status: Acute Plan: This has improved. Abdominal ultrasound unremarkable. (4) Elevated liver function tests Onset Date: 01/26/18 Current Visit: Yes Status: Acute Plan: This has improved. Abdominal sound negative. Lab sent for Hepatitis. (5) Renal insufficiency Onset Date: 01/26/18 Current Visit: Yes Status: Acute Plan: Acute renal injury likely from dehydration, ZOLTAN-inhibitor, hydrochlorothiazide, UTI. Renal function improved. Renal ultrasound shows no hydronephrosis. Continue to hold ZOLTAN-inhibitor and hydrochlorothiazide. UTI identified. Patient likely has underlying chronic renal disease. Continue as above. (6) Hypertension Onset Date: 01/26/18 Current Visit: Yes Status: Chronic Plan: Medications adjusted due to renal insufficiency and ZOLTAN-inhibitor cough. Lisinopril and hydrochlorothiazide has been discontinued. Blood pressure stable on carvedilol. Echocardiogram unremarkable. Patient likely has underlying chronic renal disease. Qualifiers: Hypertension type: essential hypertension Qualified Code(s): I10 - Essential (primary) hypertension (7) ZOLTAN-inhibitor cough Onset Date: 01/26/18 Current Visit: Yes Status: Acute Plan: Discontinued ZOLTAN-inhibitor. Continue as above. (8) Hyperlipidemia Onset Date: 01/26/18 Current Visit: Yes Status: Chronic Plan: Continue to hold Crestor. Qualifiers: Hyperlipidemia type: unspecified Qualified Code(s): E78.5 - Hyperlipidemia , unspecified (9) Arthritis Onset Date: 01/26/18 Current Visit: Yes Status: Chronic Plan: Will provide medication as needed. Patient on chronic steroids. This has been restarted. Steroid should be tapered off over time as an outpatient. (10) Chronic steroid use Onset Date: 01/26/18 Current Visit: Yes Status: Chronic Plan: Patient takes prednisone 2 mg daily. Will restart. Will recommend steroids to be tapered off over time. This can be done as an outpatient. (11) GERD (gastroesophageal reflux disease) Onset Date: 01/26/18 Current Visit: Yes Status: Suspected Plan: Will provide PPI due to chronic steroid use. Qualifiers: Esophagitis presence: esophagitis presence not specified Qualified Code(s) : K21.9 - Gastro-esophageal reflux disease without esophagitis (12) Dehydration Onset Date: 01/26/18 Current Visit: Yes Status: Acute Plan: Secondary to above. Will continue with IV fluids. Encourage ambulation and oral intake. (13) Sepsis Onset Date: 01/26/18 Current Visit: Yes Status: Suspected Plan: Pro calcitonin elevated. So far blood cultures negative. Urine culture positive for E coli. No pneumonia noted. Doubt sepsis at this time. Qualifiers: Sepsis type: Escherichia coli Qualified Code(s): A41.51 - Sepsis due to Escherichia coli [E. coli] (14) Chronic renal disease Onset Date: 01/26/18 Current Visit: Yes Status: Suspected Plan: Will monitor closely. Suspect chronic renal disease. Some improvement in renal function noted with hydration. Future medications will need to be renally dosed. No nonsteroidal anti-inflammatories is recommended in the future. Qualifiers: Chronic kidney disease stage: stage 2 (mild) Qualified Code(s): N18.2 - Chronic kidney disease, stage 2 (mild) (15) COPD (chronic obstructive pulmonary disease) Onset Date: 01/26/18 Current Visit: Yes Status: Suspected Plan: Patient with chronic cough. Chest x-ray showed COPD changes. Patient with secondhand smoke exposure. Will continue with COPD treatment. Patient will need pulmonary evaluation with PFTs as an outpatient. Cough improved. Qualifiers: COPD type: chronic bronchitis Chronic bronchitis type: unspecified Qualified Code(s): J42 - Unspecified chronic bronchitis (16) Acute renal injury Current Visit: Yes Status: Acute Plan: Continue as above. Likely from dehydration, UTI and medication. Patient may have underlying chronic renal disease. (17) Anxiety Current Visit: Yes Status: Acute Plan: Patient with anxiety. Will provide medication as needed. (18) Physical deconditioning Current Visit: Yes Status: Acute Plan: Encourage ambulation. Will have physical therapy assess ambulation. Patient may require skilled placement. Discharge Plan: Other (Home versus skilled placement) Plan to discharge in: 24 Hours Time Spent Managing Pts Care (In Minutes): 55
[2018-01-28] MEDS ORDERED: NACHLORIDE 0.45% 1,000 ML IV SCH (11:00)
--- NOTE | 2018-01-28 15:22 | P.DS ---
Admission Date: 01/26/18 Discharge Date: 01/28/18 Primary Care Provider: Dr. Heredia Disposition: ROUTINE DISCHARGE Discharge Condition: GOOD Reason for Admission: Fatigue, poor appetite Procedures: CT scan: COMPARISON: none. TECHNIQUE: Computed axial tomography of the abdomen pelvis was obtained. 100 cc Isovue-300 was administered intravenously. Oral contrast was not requested which limits evaluation of bowel. All CT scans are performed using dose optimization technique as appropriate and may include automated exposure control or mA/KV adjustment according to patient size. FINDINGS: Several hepatic granulomata are seen. Spleen, pancreas, adrenal and kidneys appear unremarkable. Diverticula stem from the colon without evidence of diverticulitis. The gallbladder is mildly distended. Hysterectomy has been performed IMPRESSION: Mild gallbladder distention. If clinically indicated further evaluation with ultrasound could be obtained Diverticulosis without evidence of diverticulitis Abdominal ultrasound: COMPARISON: Abdomen Pelvis Scan dated 11/24/2016; Abdomen Pelvis W Contrast dated 01/25/2018 FINDINGS: Mild fatty liver infiltration suspected. No focal liver lesions or intrahepatic biliary dilatation is seen. The gallbladder demonstrates no gallstones, pericholecystic fluid or gallbladder wall thickening. Common bile duct is normal in caliber measuring 3 mm. Both kidneys are normal in size, shape and echotexture. No hydronephrosis, focal lesion of concern or perinephric fluid. The spleen is normal in size measuring 10 cm. The pancreas and aorta are obscured by bowel gas. The visualized aspects of the IVC are grossly normal. IMPRESSION: Fatty liver. Negative gallbladder/biliary tree findings. Chest x-ray: COMPARISON: Chest Single View dated 01/25/2018; CHEST PA AND LAT 2 VIEW dated 11/24 FINDINGS: Interstitial prominence is noted superimposed on diffuse COPD. Findings are likely chronic. No focal infiltrate is detected. The heart is normal in size. No displaced fractures. Tortuous thoracic aorta with atherosclerosis noted. IMPRESSION: COPD with fibrotic changes noted bilaterally, likely chronic. Echocardiogram: Ejection fraction 60-65%. LEFT VENTRICULAR WALL MOTION: NORMAL DOPPLER/COLOR FLOW: MILD TRICUSPID REGURGITATION. NORMAL RIGHT VENTRICULAR SYSTOLIC PRESSURE. COMMENTS: NORMAL LEFT VENTRICULAR EJECTION FRACTION. MITRAL ANNULAR CALCIFICATION. OTHERWISE NORMAL TWO DIMENSIONAL ECHOCARDIOGRAM. MILD TRICUSPID REGURGITATION - Problems (1) UTI (urinary tract infection) Onset Date: 01/26/18 Current Visit: Yes Status: Acute Qualifiers: Urinary tract infection type: site unspecified Hematuria presence: without hematuria Qualified Code(s): N39.0 - Urinary tract infection, site not specified (2) Fatigue Onset Date: 01/26/18 Current Visit: Yes Status: Acute Qualifiers: Fatigue type: unspecified Qualified Code(s): R53.83 - Other fatigue (3) Hyperbilirubinemia Onset Date: 01/26/18 Current Visit: Yes Status: Acute (4) Elevated liver function tests Onset Date: 01/26/18 Current Visit: Yes Status: Acute (5) Renal insufficiency Onset Date: 01/26/18 Current Visit: Yes Status: Acute (6) Hypertension Onset Date: 01/26/18 Current Visit: Yes Status: Chronic Qualifiers: Hypertension type: essential hypertension Qualified Code(s): I10 - Essential (primary) hypertension (7) DAMIAN-inhibitor cough Onset Date: 01/26/18 Current Visit: Yes Status: Acute (8) Hyperlipidemia Onset Date: 01/26/18 Current Visit: Yes Status: Chronic Qualifiers: Hyperlipidemia type: unspecified Qualified Code(s): E78.5 - Hyperlipidemia , unspecified (9) Arthritis Onset Date: 01/26/18 Current Visit: Yes Status: Chronic (10) Chronic steroid use Onset Date: 01/26/18 Current Visit: Yes Status: Chronic (11) GERD (gastroesophageal reflux disease) Onset Date: 01/26/18 Current Visit: Yes Status: Suspected Qualifiers: Esophagitis presence: esophagitis presence not specified Qualified Code(s) : K21.9 - Gastro-esophageal reflux disease without esophagitis (12) Dehydration Onset Date: 01/26/18 Current Visit: Yes Status: Acute (13) Sepsis Onset Date: 01/26/18 Current Visit: Yes Status: Suspected Qualifiers: Sepsis type: Escherichia coli Qualified Code(s): A41.51 - Sepsis due to Escherichia coli [E. coli] (14) Chronic renal disease Onset Date: 01/26/18 Current Visit: Yes Status: Suspected Qualifiers: Chronic kidney disease stage: stage 2 (mild) Qualified Code(s): N18.2 - Chronic kidney disease, stage 2 (mild) (15) COPD (chronic obstructive pulmonary disease) Onset Date: 01/26/18 Current Visit: Yes Status: Suspected Qualifiers: COPD type: chronic bronchitis Chronic bronchitis type: unspecified Qualified Code(s): J42 - Unspecified chronic bronchitis (16) Acute renal injury Current Visit: Yes Status: Acute (17) Anxiety Current Visit: Yes Status: Acute (18) Physical deconditioning Current Visit: Yes Status: Acute Brief History of Present Illness: 82-year-old female presented to the ER with fatigue and poor appetite. Patient reports that this all started last week. She saw her PCP on . Apparently her blood pressure was low at that time. She was taken off her blood pressure medication including ramipril 20 mg BID and hydrochlorothiazide 25 mg daily. Since that time she has had poor appetite. Weakness noted. Some nausea was noted this morning. She reported some abdominal discomfort. No diarrhea, fever or chills noted. Patient had some dizziness. The patient came to the ER for further evaluation. In the ER patient was evaluated. Blood pressures were slightly elevated. White count 13.9, hemoglobin 14.5. Percent neutrophils elevated at 74 with absolute neutrophils at 10. BUN of 25, creatinine 1.2 with a GFR 43. Glucose 118. Total bilirubin 1.1, direct bilirubin 0.4, AST of 59, ALT 79. BNP 778. Troponin less than 0.02. Chest x-ray showed no pneumonia. Abdominal CT scan showed mild distention of the gallbladder otherwise unremarkable. Patient was given IV fluids in the emergency room. The patient was admitted for observation. When I saw the patient ER, she appeared comfortable. She denies any nausea, vomiting or abdominal pain at this time. Patient with history of hypertension, arthritis, osteoarthritis and chronic steroid use. Patient reports a chronic cough. Hospital Course: During the course of her stay patient was evaluated for sepsis. Pro calcitonin was elevated. Patient did not had any pneumonia. Patient was found to have a UTI. Urine culture positive for E coli. Hodges sensitivity was noted she has been transition to oral medication. She is done well. At discharge she will continue with Cipro 250 mg 1 pill twice daily for 7 days. Recommendation is to recheck urine culture after that time to monitor resolution. UTI prevention will need to be enforced. Patient has hypertension. There was some question of Damian allergy cough. Patient was taken off lisinopril-hydrochlorothiazide. Patient also had some renal insufficiency. Abdominal ultrasound showed no hydronephrosis. Patient likely has underlying chronic renal disease. At discharge she will continue with carvedilol 3.125 mg twice daily. Recommendation is to maintain blood pressures less 150/80. Further adjustment can be done by her PCP. Patient has hyperlipidemia. Patient previously taking medication-Crestor 5 mg daily. Patient was found to have fatty liver. Patient may continue with her medication. Hepatitis panel pending at discharge. This can be followed up as an outpatient. Patient may benefit with GI consultation as an outpatient to further address her fatty liver. Patient likely has underlying chronic renal disease. Medications have been adjusted as stated above. Recommendation is for the patient to follow up with their PCP to further address. Recommendation to recheck lab-BMP in 1 week to monitor progress. Recommendation is for the patient see nephrology in outpatient to further monitor and address. Recommendation on no further use of nonsteroidal anti-inflammatories. Future medications may need to be renally dosed. Prior to discharge patient did work with physical therapy. Patient was having some difficulty getting at bed. Patient refused to go to a skilled facility. At discharge patient was able to stand and move around appropriately. Physical therapy recommended exercises. Patient declined home health and physical therapy. This can be further monitored as an outpatient Patient reported a cough. This is likely related to Damian allergy cough. Patient was taken off DAMIAN-inhibitor. Chest x-ray showed some COPD changes. Patient reported secondhand smoke exposure. At discharge patient will continue with Symbicort 2 puffs twice daily and Pro air 2 puffs 3 times a day as needed for shortness of breath. Recommendation for the patient follow up with pulmonology as an outpatient to further evaluate. Patient may require pulmonary function test to further address. Patient has arthritis. Patient takes chronic steroids. Patient may continue with her medication. Recommendation is to wean off medication over time. This can be done with the help of her PCP. Vital Signs/Physical Exam: Temp Pulse Resp BP Pulse Ox 98.6 F 67 20 121/60 96 01/28/18 10:15 01/28/18 10:15 01/28/18 10:15 01/28/18 10:15 01/28/18 10:15 General: Alert, In no apparent distress, Oriented x3, Cooperative HEENT: Atraumatic Neck: Supple Respiratory: Clear to auscultation bilaterally, Normal air movement Cardiovascular: Normal pulses, Regular rate/rhythm Gastrointestinal: Normal bowel sounds, Soft and benign, Non-distended, No tenderness, No masses, No rebound, No guarding Musculoskeletal: No erythema, No tenderness, No warmth Integumentary: No tenderness/swelling, No erythema, No warmth, No cyanosis Neurological: Normal speech, Normal strength at 5/5 x4 extr, Normal tone, Normal affect Laboratory Data at Discharge: WBC 15.7 K/uL (4.3-10.9) H 01/28/18 05:32 Hgb 12.8 g/dL (12.0-15.0) 01/28/18 05:32 Hct 37.7 % (36.0-45.0) 01/28/18 05:32 Plt Count 246 K/uL (152-406) 01/28/18 05:32 PT 13.5 SECONDS (9.5-12.5) H 01/25/18 10:25 INR 1.14 01/25/18 10:25 APTT 24.1 SECONDS (24.3-36.9) L 01/25/18 10:25 Sodium 142 mmol/L (136-145) 01/28/18 05:32 Potassium 4.6 mmol/L (3.5-5.1) 01/28/18 05:32 BUN 17 mg/dL (7-18) 01/28/18 05:32 Creatinine 1.20 mg/dL (0.55-1.3) 01/28/18 05:32 Glucose 93 mg/dL (74-106) 01/28/18 05:32 Magnesium 2.2 mg/dL (1.8-2.4) 01/28/18 05:32 Total Bilirubin 1.0 mg/dL (0.2-1.0) 01/28/18 05:32 AST 36 U/L (15-37) 01/28/18 05:32 ALT 43 U/L (12-78) 01/28/18 05:32 Alkaline Phosphatase 221 U/L (45-117) H 01/28/18 05:32 Triglycerides 213 mg/dL (<150) H 01/26/18 05:26 Cholesterol 83 mg/dL (<200) 01/26/18 05:26 HDL Cholesterol 21 mg/dL (40-60) L 01/26/18 05:26 Cholesterol/HDL Ratio 3.95 01/26/18 05:26 Home Medications: B12/Levomefolate Calcium/B-6 [Foltx Tablet] 1 each PO DAILY 01/25/18 Calcium Carb/Vit D3/Minerals [Caltrate Plus Tablet] 1 each PO DAILY 01/25/18 Diphenhydramine HCl [Zzzquil] 25 mg PO BEDTIME 01/25/18 Famotidine 20 mg PO DAILY 01/25/18 Ferrous Fumarate/Vit Bcomp&C [Super B-Complex Caplet] 1 each PO DAILY 01/25/18 Multivit-Min/FA/Lycopen/Lutein [Centrum Silver Tablet] 1 tab PO DAILY 01/25/18 Troy-3 Fatty Acids/Fish Oil [Fish Oil Pearls Softgel] 1 cap PO BID 01/25/18 Prednisone [Dylan] 1 mg PO BID 01/25/18 Rosuvastatin Calcium 5 mg PO DAILY 01/25/18 Zolpidem Tartrate [Ambien Cr] 6.25 mg PO BEDTIME 01/25/18 Albuterol Sulfate [Proair Hfa] 8.5 gm IH TID PRN #1 hfa.aer.ad 01/28/18 Benzonatate [Tessalon Perle*] 200 mg PO TID PRN #30 cap 01/28/18 Budesonide/Formoterol Fumarate [Symbicort 160-4.5 Mcg Inhaler] 2 puff IH BID #1 hfa.aer.ad 01/28/18 Carvedilol [Coreg*] 3.125 mg PO BID 6AM 6PM #60 tab 01/28/18 Ciprofloxacin HCl [Cipro 250 MG Tablet*] 250 mg PO BID #14 tab 01/28/18 New Medications: Albuterol Sulfate [Proair Hfa] 8.5 gm IH TID PRN #1 hfa.aer.ad PRN Reason: Shortness Of Breath Benzonatate [Tessalon Perle*] 200 mg PO TID PRN #30 cap PRN Reason: Cough Budesonide/Formoterol Fumarate [Symbicort 160-4.5 Mcg Inhaler] 2 puff IH BID #1 hfa.aer.ad Carvedilol [Coreg*] 3.125 mg PO BID 6AM 6PM #60 tab Ciprofloxacin HCl [Cipro 250 MG Tablet*] 250 mg PO BID #14 tab Patient Discharge Instructions: 1. Patient will need to follow up with her PCP in 1 week to follow up this hospitalization. 2. Patient presented with fatigue. Patient found to have UTI. Urine culture positive for E coli. At discharge she will continue with Cipro 250 mg 1 pill twice daily for 7 days. Recommendation is to recheck urine culture after that time to monitor resolution. UTI prevention will need to be enforced. 3. Patient has hypertension. There was some question of Damian allergy cough. Patient was taken off Ramipril-hydrochlorothiazide. Patient also had some renal insufficiency. Abdominal ultrasound showed no hydronephrosis. Patient likely has underlying chronic renal disease. At discharge she will continue with carvedilol 3.125 mg twice daily. Recommendation is to maintain blood pressures less 150/80. Further adjustment can be done by her PCP. 4. Patient has hyperlipidemia. Patient previously taking medication-Crestor 5 mg daily. Patient was found to have fatty liver. Patient may continue with her medication. Hepatitis panel pending at discharge. This can be followed up as an outpatient. Patient may benefit with GI consultation as an outpatient to further address her fatty liver. 5. Patient may have underlying chronic renal disease. Medications have been adjusted as stated above. Recommendation is for the patient to follow up with their PCP to further address. Recommendation to recheck lab-BMP in 1 week to monitor progress. Recommendation is for the patient see nephrology in outpatient to further monitor and address. Recommendation on no further use of nonsteroidal anti-inflammatories. Future medications may need to be renally dosed. 6. Prior to discharge patient did work with physical therapy. Patient declined skilled facility placement and home health/physical therapy. Fall precautions address. Patient will continue with recommendations by physical therapy. 7. Patient reported a cough. This is likely related to Damian allergy cough. Patient was taken off DAMIAN-inhibitor. Chest x-ray showed some COPD changes. Patient reported secondhand smoke exposure. At discharge patient will continue with Symbicort 2 puffs twice daily and Pro air 2 puffs 3 times a day as needed for shortness of breath. Recommendation for the patient follow up with pulmonology as an outpatient to further evaluate. Patient may require pulmonary function test to further address. 8. Patient has arthritis. Patient is on chronic steroids. Recommendation is to continue with steroid treatment. Patient takes prednisone 1 mg twice daily. Recommendation is to wean off steroids over time. This can be done with the help of her PCP. 9. Patient takes multiple medications for insomnia. Recommendation is to wean off medications. Diet: AHA Activity: Fall precautions Time spent managing pt's care (in minutes): 55
[2018-01-28] MEDS ORDERED: ENSURE ENLIVE 237 ML CAN PO SCH (21:00)
== END 2018-01-28 18:02 | disposition home or self-care (01) | DRG 872 ==
LOC: ER 09:44 → ERHOLD 13:10 → 2ND 14:28 → OBSVTOIN 01-26 14:03
PROVIDERS: ADMIT Family Medicine; ATTEND Family Medicine
DX: A41.9 Sepsis, unspecified organism (principal); N39.0 Urinary tract infection, site not specified; N17.9 Acute kidney failure, unspecified; B96.20 Unspecified Escherichia coli [E. coli] as the cause of diseases classified elsewhere; R53.83 Other fatigue; E80.6 Other disorders of bilirubin metabolism; I12.9 Hypertensive chronic kidney disease with stage 1 through stage 4 chronic kidney disease, or unspecified chronic kidney disease; N18.2 Chronic kidney disease, stage 2 (mild); R05 Cough; T46.4X5A Adverse effect of angiotensin-converting-enzyme inhibitors, initial encounter; Y92.009 Unspecified place in unspecified non-institutional (private) residence as the place of occurrence of the external cause; E78.5 Hyperlipidemia, unspecified; M19.90 Unspecified osteoarthritis, unspecified site; Z79.52 Long term (current) use of systemic steroids; K21.9 Gastro-esophageal reflux disease without esophagitis; E86.0 Dehydration; J42 Unspecified chronic bronchitis; F41.9 Anxiety disorder, unspecified; K76.0 Fatty (change of) liver, not elsewhere classified; Z88.5 Allergy status to narcotic agent
CPT/HCPCS: 36415; 71045; 71046; 74177; 76700; 76705; 80048; 80053; 80061; 80074; 80076; 81003; 81015; 82550; 82553; 83605; 83735; 83880; 84145; 84439; 84443; 84484; 85025; 85610; 85730; 87040; 87077; 87086; 87088; 87186; 93005; 93306; 94640; 96360; 97163; 99285; G0378; J0696; J1650; J3475; J7030; J7605; Q9967

== ENCOUNTER 2021-09-19 16:21 | Emergency (ER) | payer OTHER ==
--- OUTSIDE RECORDS SUMMARY | 2021-09-19 16:23 | XMS REPORT | Continuity of Care Document ---
:1935 Author Organization [facility] t Address [address] [place] [address] Care Team Providers Name Role Phone Lab, Fam Pob I Attending Clinician Unavailable Anene FUNCTIONAL SUPPORT ANALYST Attending Clinician ANENE Attending Clinician Unavailable Payers Payer Name Policy Type Policy Number Effective Date Expiration Date S ource Problems Condition Condition Condition Status Onset Resolution Last Treating Co mments Source Name Details Category Date Date Treatment Clinician Date Osteopenia Osteopenia Disease Active U nivers 2-21 ity of 00:00: [place] 00 [facility] Branch History of History of Disease Active U nivers long-term long-term 2-21 ity of treatment treatment 00:00: Peng s with with 00 Medical high-risk high-risk Bran ch medication medication Inflammato Inflammato Disease Active Overview : 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:00: Diagnosis [place] thy thy 00 Term Medical Rn Urgent Care Branch Utility Crohn's Crohn's Disease Active Univers disease disease 2-21 ity of 00:00: [place] 00 Medical [facility] Encounter Encounter Disease Active Uni vers for for 2-21 [place] of long[place] Medi galo use of use of Branch steroids steroids Allergies, Adverse Reactions, Alerts Allergy Allergy Status Severity Reaction(s) Onset Inactive Treating Comm ents Source Name Type Date Date Clinician Codeine Propensi Active Unknown - Univ ers ty to See comments 2-21 ity of adverse 00:00: [place] reaction 00 Medical s Branch CODEINE DRUG Active Unknown-Cmnt Uni vers INGREDI 2-21 ity of 00:00: [place] [id number] Medical Branch Social History Social Habit Start Date Stop Date Quantity Comments Source Sex Assigned At Universit y of [facility] [place] [facility] Exposure to Not sure University SARS-CoV-2 [facility] (event) Branch Alcohol intake 2013-09-09 2013-09-09 Current University of 00:00:00 00:00:00 non-drinker of [facility] [place] alcohol [place] (finding) Smoking Status Start Date Stop Date Source Never smoker [facility] Branch Medications Ordered Filled Start Stop Current Ordering Indication Dosage Frequency Signature Comments Components Source Medication Medication Date Date Medication? Clinician (SIG) Name Name SERTraline Yes 50mg Take 50 mg U nivers (ZOLOFT) 50 2-21 by mouth ity of mg tablet 19:20: daily. [place] [address] Medical Branch hydrochloro Yes 25mg Take 25 mg Univers thiazide 2-21 by mouth ity of (ESIDRIX) 19:20: daily. [place] 25 mg Medical tablet Branch lansoprazol Yes 30mg Take 30 mg Univers e 2-21 by mouth ity of (PREVACID) 19:20: daily. [place] 30 mg Medical capsule Branch Colestipol Yes Take by Uni vers HCl 2-21 mouth. ity of (COLESTID) 19:20: [place] 1 gram Tab Medical Branch rosuvastati Yes 5mg Take 5 mg U nivers n (CRESTOR) 2-21 by mouth [place] 5 [place] [address] [place] [address] Branch ondansetron Yes 8mg Take 8 mg U nivers (ZOFRAN) 8 2-21 by mouth ity o f mg tablet 19:20: once now. [place] Medical Branch zolpidem Yes 6.25mg Take 6.25 Un arabella (AMBIEN CR) 2-21 mg by ity of 6.25 mg CR 19:20: mouth at [place] tablet 15 bedtime as Medical needed. Branch ramipril Yes 10mg Take 10 mg Uni vers (ALTACE) 10 2-21 by mouth ity of mg capsule 19:20: daily. [address] Branch predniSONE Yes [id number] 2.5mg Take 1 Tab Univers 2.5 mg 2-21 by mouth ity of tablet 00:00: daily. [address] sulfaSALAzi 2014-0 Yes [id number] 1000mg Take 2 Univers ne 2-21 Tabs by ity of (AZULFIDINE 00:00: mouth 2 [place] as EN-TABS) 00 (two) Medical 500 mg EC times Branch tablet daily. Procedures This patient has no known procedures. Encounters Start End Encounter Admission Attending Care Care Encounter Source Date/Time Date/Time Type Type Clinicians Facility Department ID 2020-07-09 2020-07-09 Laboratory Lab, [facility] Fam Pob I [facility] [id number] Univers 14:01:37 14:21:37 Only Jessica Brito [id number] ity of [place] [id number] [place] Professio [phone] [place] [address] 2020-07-09 2020-07-09 Laboratory Lab, [facility] [id number] 14:01:37 14:21:37 Only Bret Pob I Health [id number] [place] [id number] Professio [phone] [place] [address] [address] 2020-07-09 2020-07-09 Outpatient R [facility] [id number] Univers 14:00:00 14:00:00 JESSICA chapman [facility] Results This patient has no known results.
[2021-09-19] MEDS ORDERED: ONDANSETRON 4 MG/2 ML VIAL ONE (20:02)
[2021-09-19] MEDS ORDERED: FAMOTIDINE 20 MG/2 ML VIAL IV ONE (20:02)
[2021-09-19 20:06] LABS: Absolute Lymphocytes (CBC) 1.6 K/uL (0.7-4.9); Hematocrit 51.3 % (36.0-45.0); Lymphocytes % 14.3 % (15.3-44.8); RBC Red Blood Cell Count 5.68 M/uL (3.86-4.86)
[2021-09-19] MEDS ORDERED: MORPHINE 4 MG/ML SYR ONE (20:31)
[2021-09-19] MEDS ORDERED: NA CHLORIDE 0.9% 250 ML ONE (20:31)
--- NOTE | 2021-09-19 20:48 | RAD REPORT ---
EXAM DESCRIPTION: RAD - Chest Single View - 09/19/2021 8:25 pm CLINICAL HISTORY: ABDOMINAL DISTENTION COMPARISON: January 2018 TECHNIQUE: AP portable chest image was obtained 09/19/2021 8:25 pm . FINDINGS: Chronic interstitial lung disease is present accentuated by low lung volumes. Markings are increased in base and could be interstitial edema or infiltrate. Upper lobe vasculature within gary l limits. Heart size normal range. No measurable pleural effusion and no pneumothorax. No acute bony abnormality seen. No acute aortic findings suspected. IMPRESSION: Interstitial edema or infiltrate in each lung base superimposed on chronic interstitial lung disease.
[2021-09-19 21:06] LABS: Potassium 4.5 mmol/L (3.5-5.1)
[2021-09-19 21:14] LABS: Albumin 3.5 g/dL (3.4-5.0); Bilirubin Direct 0.4 mg/dL (0-0.2); Bilirubin Total 1.7 mg/dL (0.2-1.0); Protein, Total 7.9 g/dL (6.4-8.2)
[2021-09-19 21:22] LABS: Urine Blood Negative (Negative); Urine Glucose Negative (Negative); Urine Protein 1+ (Negative)
[2021-09-19 21:39] LABS: Urine Bacteria <20 /HPF (<20); Urine Mucus 2+ /HPF (NONE SEEN); Urine RBC <5 /HPF (NONE SEEN)
--- NOTE | 2021-09-19 22:03 | RAD REPORT ---
EXAM DESCRIPTION: CT - Abdomen Pelvis Wo Contrast - 09/19/2021 9:34 pm CLINICAL HISTORY: ABD PAIN COMPARISON: Abdomen Pelvis W Contrast dated 01/25/2018 TECHNIQUE: Axial [address] imaging of the abdomen and pelvis was performed without IV contrast. No IV contrast was given because of allergy, abnormal renal function, patient refusal or physician re quest. No oral contrast administered. All CT scans are performed using dose optimization technique as appropriate and may include automated exposure control or mA/KV adjustment according to patient size. FINDINGS: Extensive fibrotic lung changes are present. This could mask interstitial edema or infiltr ate. No pneumothorax or pleural effusion. The liver, spleen and pancreas show no acute findings on non-contrast imaging. No gallbladder wall th ickening or edema. Punctate calcification seen in the fundus. This could be a small stone or wall galo cification. Long-term significance is doubtful. No biliary tree dilatation. No hydronephrosis or suspicious renal mass. No significant adrenal finding. Isodense renal masses an d pyelonephritis cannot be excluded in the absence of IV contrast. Urinary bladder is contracted. [place] yelena is absent. Ovaries are atrophic. No stomach or duodenum acute finding. Loops of jejunum are unremarkable. There are multiple loops of ileum that shows circumferential wall thickening. Involving ileum is not dilated. There is stranding in the adjacent fat. No acute colon process. Moderate diverticulosis without diverticulitis. No free air, pneumatosis or suspicious free fluid collection. No hernia, mass or bulky lymphadenopa thy. Advanced disc and bone degenerative changes are present. IMPRESSION: Right lower quadrant ileitis or nonspecific enteritis pattern. No obstruction, free air or surgically emergent finding. Full assessment is limited is the absence of IV contrast.
--- NOTE | 2021-09-19 22:04 | RAD REPORT ---
EXAM DESCRIPTION: US - Abdomen Exam Limited - 09/19/2021 9:39 pm CLINICAL HISTORY: Abd pain;Nausea / vomiting COMPARISON: Abdomen Pelvis Wo Contrast dated 09/19/2021 FINDINGS: No gallstones, sludge or other abnormalities within the gallbladder lumen. There is no wal l thickening or pericholecystic fluid. No common duct stone or biliary tree dilatation identified. IMPRESSION: No gallbladder or biliary tree abnormality identifiable.
[2021-09-19] MEDS ORDERED: NA CHLORIDE 0.9% 50 ML ONE (22:17)
[2021-09-19] MEDS ORDERED: CEFTRIAXONE 1000 MG/VIAL ONE (22:17)
--- NOTE | 2021-09-19 23:22 | EDPHYS ---
Physician Documentation [facility] Name: Sandra Gusman Age: 86 yrs Sex: Female : 1935 Arrival Date: 09/19/2021 Time: 16:24 Bed 12 Private MD: ED Physician Isidro Becker HPI: 09/19 19:25 This 86 yrs old Female presents to ER via Ambulatory with complaints of Abdominal Pain. cp 19:25 The patient presents with abdominal pain. cp 19:25 Onset: The symptoms/episode began/occurred this morning. cp 19:25 The symptoms radiate to Associated signs and symptoms: Pertinent positives: anorexia, cp diarrhea, vomiting, Pertinent negatives: blood in stools, constipation, dysuria, fever, shortness of breath, vomiting blood, chest pain. The symptoms are described as constant. Severity of pain: in the emergency department the pain is unchanged despite home interventions. Historical: - Allergies: 16:39 Codeine; ll1 - PMHx: 16:39 Hypertension; ll1 - PSHx: 16:39 None; ll1 - Immunization history:: Client reports receiving the 2nd dose of the Covid vaccine, Flu vaccine is up to date. - Social history:: Smoking status: Patient denies any tobacco usage or history of. ROS: 19:30 Constitutional: Positive for poor PO intake, Negative for body aches, chills, fever. cp 19:30 Eyes: Negative for injury, pain, redness, and discharge. cp 19:30 ENT: Negative for drainage from ear(s), ear pain, sore throat, difficulty swallowing, difficulty handling secretions. 19:30 Cardiovascular: Negative for chest pain, edema, palpitations. 19:30 Respiratory: Negative for cough, shortness of breath, wheezing. 19:30 Abdomen/GI: Positive for abdominal pain, nausea and vomiting, Negative for diarrhea, constipation, hematemesis. 19:30 : Negative for urinary symptoms. 19:30 Neuro: Negative for altered mental status, dizziness, headache, numbness, syncope, weakness. 19:30 All other systems are negative. Exam: 19:35 Constitutional: The patient appears in no acute distress, alert, awake, cp non-diaphoretic, non-toxic, well developed, well nourished, uncomfortable. 19:35 Head/Face: Normocephalic, atraumatic. cp 19:35 Eyes: Periorbital structures: appear normal, Conjunctiva: normal, no exudate, no injection, Sclera: no appreciated abnormality, Lids and lashes: appear normal, bilaterally. 19:35 ENT: External ear(s): are unremarkable, Nose: is normal, Mouth: Lips: moist, Oral mucosa: pink and intact, moist, Posterior pharynx: Airway: no evidence of obstruction, patent. 19:35 Chest/axilla: Inspection: normal, Palpation: is normal, no crepitus, no tenderness. 19:35 Cardiovascular: Rate: normal, Rhythm: regular, Edema: is not appreciated, JVD: is not appreciated. 19:35 Respiratory: the patient does not display signs of respiratory distress, Respirations: normal, no use of accessory muscles, no retractions, labored breathing, is not present, Breath sounds: are clear throughout, no decreased breath sounds, no stridor, no wheezing. 19:35 Abdomen/GI: Inspection: abdomen appears normal, Bowel sounds: active, all quadrants, Palpation: soft, in all quadrants, moderate abdominal tenderness, in the umbilical area, right upper quadrant and left upper quadrant, rebound tenderness, is not appreciated, voluntary guarding, is elicited in the umbilical area, right upper quadrant and left upper quadrant. 19:35 Back: CVA tenderness, is absent. 19:35 Neuro: Orientation: to person, place \\T\\ time. Mentation: is normal, Motor: moves all fours, strength is normal, Sensation: is normal. 20:33 ECG was reviewed by the Attending Physician. cp Vital Signs: 16:37 BP 114 / 89; Pulse 60; Resp 18; Temp 97.7; Pulse Ox 98% ; Weight 63.5 kg; Height 5 ft. ll1 0 in. (152.40 cm); Pain 6/10; 20:16 BP 148 / 69; Pulse 43; Resp 18; Pulse Ox 100% ; st1 22:49 BP 158 / 62; Pulse 48; Resp 18; Pulse Ox 98% on R/A; st1 23:49 BP 150 / 60; Pulse 48; Resp 16; Pulse Ox 100% on R/A; st1 16:37 Body Mass Index 27.34 (63.50 kg, 152.40 cm) ll1 MDM: 18:37 Patient medically screened. cp 20:00 Differential diagnosis: cholecystitis, Cholelithiasis, diverticulitis, gastritis, cp non-specific abd pain, pancreatitis, Peritonitis, Pyelonephritis, Ureterolithiasis, urinary tract infection. 23:20 Data reviewed: vital signs, nurses notes, lab test result(s), EKG, radiologic studies, cp CT scan, plain films, I have discussed the patient's presentation/case with the attending Emergency Department Physician;. 23:20 Test interpretation: by ED physician or midlevel provider: ECG, plain radiologic cp studies. 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 Response to treatment: the patient's symptoms have markedly improved after treatment, patient is well hydrated. Nausea improved, vomiting resolved. Patient reports feeling much better and requesting discharge to home. Repeat EKG shows Sinus Bradycardia. Patient denies any chest pain. 09/19 19:20 Order name: Basic Metabolic Panel 09/19 19:20 Order name: CBC with Diff; Complete Time: 20:24 cp 09/19 20:24 Interpretation: Normal except: WBC 11.10; RBC 5.68; HGB 17.2; HCT 51.3; RDW 15.7; ANNALISA% cp 80.6; LYM% 14.3; NEUT A 8.9. 09/19 19:20 Order name: Hepatic Function; Complete Time: 21:14 cp 09/19 22:47 Interpretation: Normal except: AST 46; ALK 202; BILIT 1.7; BILID 0.4; GLOB 4.4; A/G 0.8.cp 09/19 19:20 Order name: Lipase; Complete Time: 21:15 cp 09/19 19:21 Order name: Basic Metabolic Panel; Complete Time: 21:15 EDMS 09/19 22:06 Interpretation: Normal except: GLUC 123; BUN 36; CRE 1.55; GFR 32. cp 09/19 19:26 Order name: Urine Microscopic Only; Complete Time: 21:50 cp 09/19 21:22 Order name: Urine Dipstick-Ancillary; Complete Time: 21:50 EDMS 09/19 22:35 Interpretation: Normal except: UKET 1+; UPROT 1+; U NIT Positive; UESTR Trace. cp / 21:40 Order name: Urine Culture EDMS 09/19 22:59 Order name: COVID-19/FLU A+B (Document "Date of Onset" if Symptomatic) st1 09/19 19:20 Order name: IV Saline Lock; Complete Time: 19:59 cp 09/19 19:20 Order name: Labs collected and sent; Complete Time: 19:59 cp 09/19 19:26 Order name: Urine Dipstick-Ancillary (obtain specimen); Complete Time: 20:09 cp 09/19 19:26 Order name: XRAY Chest (1 view); Complete Time: 21:14 cp 09/19 20:19 Order name: EKG; Complete Time: 20:19 cp 09/19 20:19 Order name: EKG - Nurse/Tech; Complete Time: 20:35 cp 09/19 21:15 Order name: US Abdomen Limited: RUQ; Complete Time: 22:06 cp 09/19 21:21 Order name: Abdomen ; Complete Time: 22:04 EDMS 09/19 23:08 Order name: EKG; Complete Time: 23:09 st1 09/19 22:07 Order name: PO challenge; Complete Time: 22:19 cp EC:33 Rate is 53 beats/min. Rhythm is regular. QRS interval is normal. QT interval is normal. cp T waves are Inverted in lead III. Interpreted by me. Reviewed by me. Administered Medications: 20:00 Drug: Zofran (Ondansetron) 4 mg Route: IVP; Site: left antecubital; st1 20:00 Drug: Pepcid (famotidine) 20 mg Route: IVP; Site: left antecubital; st1 20:35 Drug: NS 0.9% 500 ml Route: IV; Rate: calculated rate; Site: left antecubital; st1 21:35 Follow up: IV Intake: 250ml st1 20:35 Drug: morphine 2 mg Route: IVP; Site: left antecubital; st1 20:36 Not Given (Patient Bradycardic ): fentaNYL (PF) 25 mcg IVP once; RASS on ADMIN: st1 Combtv4, Very Agttd3, Agttd2, Rstlss1, AlertClm0, Drwsy-1, Lt Sdtn-2, Mod Sdtn-3, Dp Sdtn-4, UnArsble-5 22:19 Drug: Rocephin - (cefTRIAXone) 1 grams Route: IVPB; Infused Over: 30 mins; Site: left st1 antecubital; 22:50 Follow up: IV Intake: 50ml st1 Disposition Summary: 09/19/21 23:22 Discharge Ordered Location: Home cp Problem: new cp Symptoms: have improved cp Condition: Stable cp Diagnosis - UTI/ Urinary tract infection, site not specified cp - Bradycardia, unspecified cp - Nausea cp - Diarrhea, unspecified cp Followup: cp - With: Pool Davidson MD - When: 2 - 3 days - Reason: abnormal EKG, Abnormal EKG, sinus bradycardia Discharge Instructions: - Discharge Summary Sheet cp - Food Choices to Help Relieve Diarrhea, Adult cp - Diarrhea, Adult cp - Nausea and Vomiting, Adult cp - Urinary Tract Infection, Adult cp Forms: - Medication Reconciliation Form cp - Thank You Letter cp - Antibiotic Education cp - Prescription Opioid Use cp Prescriptions: - Augmentin 875-125 mg Oral Tablet - take 1 tablet by ORAL route every 12 hours for 7 days; 14 tablet; Refills: 0, cp Product Selection Permitted - Zofran 4 mg Oral Tablet - take 1 tablet by ORAL route every 12 hours As needed; 20 tablet; Refills: 0, cp Product Selection Permitted Signatures: Dispatcher [employer] EDMS Adonay Villalba PA PA cp Erica Starks, RN RN ll1 Katherine Singh RN RN st1 Corrections: (The following items were deleted from the chart) 20:17 19:26 UA MICROSCOPIC+U.LAB.BRZ ordered. EDMS EDMS 21:21 19:27 Abdomen Pelvis W Con+CT.RAD.BRZ ordered. EDMS EDMS 22:47 21:14 Normal except. cp cp 09/20 21:45 03 23:20 Response to treatment: the patient's symptoms have markedly improved after cp treatment, patient is well hydrated. Nausea improved, vomiting resolved. Patient reports feeling much better and requesting discharge to home, cp
--- NOTE | 2021-09-19 23:22 | ER ---
Nurse's Notes [facility] Name: Sandra Gusman Age: 86 yrs Sex: Female : 1935 Arrival Date: 09/19/2021 Time: 16:24 Bed 12 Private MD: Diagnosis: UTI/ Urinary tract infection, site not specified;Bradycardia, unspecified;Nausea;Diarrhea, unspecified Presentation: 09/19 16:37 Chief complaint: Patient states: Abd pain with N/V/D for 1 day. No fever. Coronavirus ll1 screen: Vaccine status: Patient reports receiving the 2nd dose of the covid vaccine. Client denies travel out of the [place] in the last 14 days. diarrhea, nausea, vomiting. Client presents with at least one sign or symptom that may indicate coronavirus-19. Standard/surgical mask placed on the client. Ebola Screen: Patient denies travel to an Ebola-affected area in the 21 days before illness onset. Initial Sepsis Screen: Does the patient meet any 2 criteria? No. Patient's initial sepsis screen is negative. Does the patient have a suspected source of infection? Yes: Acute abdominal pain. Risk Assessment: Do you want to hurt yourself or someone else? Patient reports no desire to harm self or others. Onset of symptoms was September 19, 2021. 16:37 Method Of Arrival: Ambulatory 1 16:37 Acuity: ARIEL 3 ll1 Triage Assessment: 16:40 General: Appears uncomfortable, ill, Behavior is calm, cooperative, appropriate for ll1 age. Pain: Complains of pain in abd Quality of pain is described as aching, crampy. Neuro: No deficits noted. Cardiovascular: No deficits noted. Respiratory: No deficits noted. GI: Reports lower abdominal pain, upper abdominal pain, diarrhea, nausea, vomiting. Historical: - Allergies: 16:39 Codeine; ll1 - PMHx: 16:39 Hypertension; ll1 - PSHx: 16:39 None; ll1 - Immunization history:: Client reports receiving the 2nd dose of the Covid vaccine, Flu vaccine is up to date. - Social history:: Smoking status: Patient denies any tobacco usage or history of. Screenin:23 Abuse screen: Denies threats or abuse. Nutritional screening: No deficits noted. st1 Tuberculosis screening: No symptoms or risk factors identified. Fall Risk None identified. No fall in past 12 months (0 pts). No secondary diagnosis (0 pts). IV access (20 points). Ambulatory Aid- None/Bed Rest/Nurse Assist (0 pts). Gait- Weak (10 pts.). Mental Status- Oriented to own ability (0 pts). Total Collins Fall Scale indicates Low Risk Score (25-44 pts). Fall prevention measures have been instituted. Side Rails Up X 2 Placed close to Nursing Station Frequent Obs/Assesments occuring Family Present and informed to notify staff if they need to leave bedside As available Patient and Family Educated on Fall Prevention Program and strategies. Assessment: 18:36 Reassessment: No changes from previously documented assessment. Patient and/or family ss updated on plan of care and expected duration. Pain level reassessed. Patient is alert, oriented x 3, equal unlabored respirations, skin warm/dry/pink. 22:56 Reassessment: patient updated on admission and room status. st1 23:24 GI: Bowel sounds present X 4 quads. Abd is soft and non tender X [address]1 Vital Signs: 16:37 BP 114 / 89; Pulse 60; Resp 18; Temp 97.7; Pulse Ox 98% ; Weight 63.5 kg; Height 5 ft. ll1 0 in. (152.40 cm); Pain 6/10; 20:16 BP 148 / 69; Pulse 43; Resp 18; Pulse Ox 100% ; st1 22:49 BP 158 / 62; Pulse 48; Resp 18; Pulse Ox 98% on R/A; st1 23:49 BP 150 / 60; Pulse 48; Resp 16; Pulse Ox 100% on R/A; st1 16:37 Body Mass Index 27.34 (63.50 kg, 152.40 cm) ll1 ED Course: 16:24 Patient arrived in ED. ds1 16:39 Triage completed. ll1 16:39 Arm band placed on. ll1 18:36 Adonay Villalba PA is PHCP. cp 18:36 Isidro Becker MD is Attending Physician. cp 18:36 Patient placed in an exam room, on a stretcher. ss 18:47 Soraya Ny, EUN is Primary Nurse. jg9 19:10 Primary Nurse role handed off by Soraya Ny, RN cs9 19:37 Katherine Singh, EUN is Primary Nurse. st1 19:59 Initial lab(s) drawn, by me, sent to lab. Inserted saline lock: 22 gauge in left lt3 antecubital area, using aseptic technique. 20:01 Basic Metabolic Panel Sent. st1 20:01 CBC with Diff Sent. st1 20:01 Hepatic Function Sent. st1 20:01 Basic Metabolic Panel Sent. st1 20:01 Lipase Sent. st1 20:09 XRAY Chest (1 view) Sent. st1 20:25 XRAY Chest (1 view) In Process Unspecified. EDMS 21:34 Abdomen In Process Unspecified. EDMS 21:38 US Abdomen Limited: RUQ Sent. st1 21:39 US Abdomen Limited: RUQ In Process Unspecified. EDMS 23:08 COVID-19/FLU A+B (Document "Date of Onset" if Symptomatic) Sent. st1 23:20 Pool Davidson MD is Referral Physician. cp 23:23 No provider procedures requiring assistance completed. st1 23:24 Patient has correct armband on for positive identification. Bed in low position. Call st1 light in reach. Side rails up X 1. Pulse ox on. NIBP on. 23:50 Patient transferred, IV remains in place. intact, bleeding controlled, No st1 redness/swelling at site. Pressure dressing applied. Administered Medications: 20:00 Drug: Zofran (Ondansetron) 4 mg Route: IVP; Site: left antecubital; st1 20:00 Drug: Pepcid (famotidine) 20 mg Route: IVP; Site: left antecubital; st1 20:35 Drug: NS 0.9% 500 ml Route: IV; Rate: calculated rate; Site: left antecubital; st1 21:35 Follow up: IV Intake: 250ml st1 20:35 Drug: morphine 2 mg Route: IVP; Site: left antecubital; st1 20:36 Not Given (Patient Bradycardic ): fentaNYL (PF) 25 mcg IVP once; RASS on ADMIN: st1 Combtv4, Very Agttd3, Agttd2, Rstlss1, AlertClm0, Drwsy-1, Lt Sdtn-2, Mod Sdtn-3, Dp Sdtn-4, UnArsble-5 22:19 Drug: Rocephin - (cefTRIAXone) 1 grams Route: IVPB; Infused Over: 30 mins; Site: left st1 antecubital; 22:50 Follow up: IV Intake: 50ml st1 Intake: 21:35 IV: 250ml; Total: 250ml. st1 22:50 IV: 50ml; Total: 300ml. st1 Outcome: 23:22 Discharge ordered by MD. cp 23:50 Discharged to home via wheelchair. st1 23:50 Condition: good 23:50 Discharge instructions given to patient, family, Instructed on discharge instructions, follow up and referral plans. no drinking with medication, medication usage, Demonstrated understanding of instructions, follow-up care, medications, Prescriptions given X 2. 23:51 Patient left the ED. st1 Addendum: 09/22/2021 07:06 Addendum: Culture Results: Positive urine culture. No further action required. Bacteria e b sensitive to prescribed antibiotic. Signatures: Dispatcher [employer] EDMS Ramona Hernandez ds1 Angela Alegria RN RN ss Page, Corey, PA PA Brandie Garland Lynsay, RN RN ll1 Shawna Talley cs9 Ngoc Stacy lt3 Soraya Ny RN RN jg9 Katherine Singh RN RN st1 Corrections: (The following items were deleted from the chart) 03 16:39 16:37 Pulse 60bpm; Resp 18bpm; Pulse Ox 98%; Temp 97.7F; 63.5 kg; Height 5 ft. 0 in.; ll1 BMI: 27.3; Pain 6/10; ll1 20:17 20:09 UA MICROSCOPIC+U.LAB.BRZ drawn and sent. st1 EDMS 20:18 20:16 BP 99 / 58; Pulse 138bpm; Resp 10bpm; Pulse Ox 95% RA; st1 st1
[2021-09-20 00:06] LABS: SARS-COV-2 RT PCR NEGATIVE (NEGATIVE)
[2021-09-20 02:07] VITALS: TEMP 97.7
[2021-09-20 02:10] VITALS: BP 150/60; O2SAT 100
--- NOTE | 2021-09-20 11:30 | EKG ---
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
--- NOTE | 2021-09-20 11:30 | EKG ---
Test Date: 2021-09-19 Test Time: 20:26:01 Automatic Corn Grinder Operator: AMALIA MEASUREMENT RESULTS: Intervals: Rate: 53 NM: QRSD: 82 QT: 494 QTc: 463 [place]: P: NM: QRS: -35 T: -26 INTERPRETIVE STATEMENTS: Atrial fibrillation with slow ventricular response Left axis deviation ST & T wave abnormality, consider inferior ischemia or digitalis effect Abnormal ECG Compared to ECG 01/25/2018 09:56:24 ST (T wave) deviation now present Possible ischemia now present Sinus rhythm no longer present Left ventricular hypertrophy no longer present Electronically Signed On 09-20-21 11:28:56 BOX WORKER by Tanmay Prado
== END 2021-09-19 23:51 | disposition home or self-care (01) ==
LOC: ER 16:21
DX: N39.0 Urinary tract infection, site not specified (principal); R11.0 Nausea; R19.7 Diarrhea, unspecified; I10 Essential (primary) hypertension; Z88.5 Allergy status to narcotic agent
CPT/HCPCS: 93005 ×2; 87088; 85025; 87086; 80048; 36415; 80076; 87077; 87186; 83690; 0240U; 74176; 71045; 76705; 96375; 96374; 99284; J7050; J2405; 81003; 81015

== ENCOUNTER 2022-12-12 09:15 | Emergency (ER) | payer OTHER ==
--- OUTSIDE RECORDS SUMMARY | 2022-12-12 09:21 | XMS REPORT | Continuity of Care Document ---
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 Crohn's Crohn's Disease Active Univers [...] ents Source Name Type Date Date Clinician Adam March Active Unknown - Univ ers ty to See comments 2-21 ity of adverse 00:00: [place] reaction 00 Medical s Branch CODEINE DRUG Active Unknown-Cmnt Uni vers INGREDI 2-21 ity of 00:00: [place] 00 Medical Branch Social History Social Habit Start Date Stop Date Quantity Comments Source Sex Assigned At [facility] [place] [facility] Exposure to Not sure [facility] SARS-CoV-2 [place] [facility] (event) Branch Alcohol intake 2013-09-09 2013-09-09 Current University 00:00:00 00:00:00 non-drinker of [facility] alcohol [place] (finding) Smoking Status Start Date Stop Date Source Never smoker [facility] Medications Ordered Filled Start Stop Current Ordering Indication Dosage Frequency Signature Comments Components Source Medication Medication Date Date Medication? Clinician (SIG) Name Name SERTraline Yes 50mg Take 50 mg U nivers (ZOLOFT) 50 2-21 by mouth ity of mg tablet 19:20: daily. [place] [address] Medical Branch hydrochloro Yes 25mg Take 25 mg Univers thiazide 2-21 by mouth ity of (ESIDRIX) 19:20: daily. [place] 25 mg Medical tablet Branch lansoprazol Yes 30mg Take 30 mg Univers e 2-21 by mouth ity of (PREVACID) 19:20: daily. [place] 30 mg Medical capsule Branch Colestipol Yes Take by [facility] ers HCl 2-21 mouth. ity of (COLESTID) 19:20: [place] 1 gram Tab Medical Branch rosuvastati Yes 5mg Take 5 mg U nivers n (CRESTOR) 2-21 by mouth ity of 5 mg tablet 19:20[place] [address] [place] [address] Branch ondansetron Yes 8mg Take 8 mg [...] mouth ity of mg capsule 19:20: daily. [address] Branch predniSONE Yes [id number] 2.5mg Take 1 Tab Univers 2.5 mg 2-21 by mouth ity of tablet 00:00: daily. [address] sulfaSALAzi Yes [id number] 1000mg Take 2 Univers ne 2-21 Tabs by ity of (AZULFIDINE 00:00: mouth 2 [place] as EN-TABS) 00 (two) Medical 500 mg EC times Branch tablet daily. Procedures This patient has no known procedures. Encounters Start End Encounter Admission Attending Care Care Encounter Source Date/Time Date/Time Type Type Clinicians Facility Department ID 2020-07-09 2020-07-09 Laboratory Lab, [facility] [id number] 14:01:37 14:21:37 Only [facility] [id number] [place] [id number] Professio [phone] [place] [address] [address] 2020-07-09 2020-07-09 Laboratory Lab, [facility] Fam Pob I [facility] [id number] Univers 14:01:37 14:21:37 Only Jessica Alba [id number] ity of [place] [id number] [place] as Professio [phone] Wy dical [address] 2020-07-09 2020-07-09 Outpatient R [facility] [id number] Univers 14:00:00 14:00:00 JESSICA chapman of [facility] Results This patient has no known results.
[2022-12-12] MEDS ORDERED: NA CHLORIDE 0.9% 1,000 ML ONE (11:32)
[2022-12-12 11:56] LABS: Absolute Lymphocytes (CBC) 1.3 K/uL (0.7-4.9); Hematocrit 43.9 % (36.0-45.0); Lymphocytes % 13.3 % (15.3-44.8); MCV 91.4 fL (80-100); MPV 9.6 fL (7.6-11.3)
[2022-12-12 12:00] LABS: Specific Gravity 1.022 (1.005-1.030); Transitional Epithelial <5 /HPF (None Seen); Urine Bacteria None Seen /HPF (<20); Urine Bilirubin NEGATIVE (Negative); Urine Blood Negative (Negative); Urine Clarity Clear (Clear); Urine Color Yellow (Yellow); Urine Glucose NEGATIVE (Negative); Urine Mucus Slight /HPF (None Seen); Urine Protein TRACE (Negative); Urine RBC <5 /HPF (None Seen); Urine Urobilinogen Normal (Normal)
[2022-12-12 13:02] LABS: Albumin 3.3 g/dL (3.4-5.0); Bilirubin Total 1.2 mg/dL (0.2-1.0); Potassium 4.7 mEq/L (3.5-5.1); Protein, Total 7.3 g/dL (6.4-8.2)
--- NOTE | 2022-12-12 13:22 | RAD REPORT ---
EXAM DESCRIPTION: CT - Head Brain Wo Cont - 12/12/2022 12:43 pm CLINICAL HISTORY: WEAKNESS Weakness COMPARISON: No comparisons TECHNIQUE: Noncontrast head CT images ad were obtained without IV contrast. Multiplanar reformats we re generated and reviewed. All CT scans are performed using dose optimization technique as appropriate and may include automated exposure control or mA/KV adjustment according to patient size. FINDINGS: No intracranial hemorrhage, mass, or edema. Midline structures are unremarkable. Mild diffuse parenchymal volume loss, with proportionate effacement of the ventricular system and sul ci. Left basal ganglia small foci of near CSF density along the caudate head and body, may suggest small subacute to chronic infarcts. Albert-white matter differentiation is otherwise preserved, without evide nce of acute infarct. No abnormal extra-axial fluid collections. Other nonspecific patchy deep white matter hypoattenuation, may suggest chronic small vessel ischemic changes. Mastoid air cells and visualized portions of the paranasal sinuses are clear. No acute bony findings. 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 Other nonspecific deep white matter hypodensities, most suggestive of chronic small vessel ischemic c hanges. Mild diffuse parenchymal volume loss.
--- NOTE | 2022-12-12 13:26 | ER ---
Nurse's Notes [facility] Name: Sandra Gusman Age: 87 yrs Sex: Female : 1935 Arrival Date: 12/12/2022 Time: 09:15 Bed 19 Private MD: Diagnosis: Dysuria Presentation: 12/12 09:59 Chief complaint: Patient's son or daughter states: Justine, daughter reports burning with jl7 urination x 1 week with personality changes; urgent care prescribed Macrobid Thursday, no improvement, Bactrim Thursday and still not improvement. Coronavirus screen: At this time, the client does not indicate any symptoms associated with coronavirus-19. Ebola Screen: No symptoms or risks identified at this time. Initial Sepsis Screen: Does the patient meet any 2 criteria? No. Patient's initial sepsis screen is negative. Does the patient have a suspected source of infection? No. Patient's initial sepsis screen is negative. Risk Assessment: Do you want to hurt yourself or someone else? Patient reports no desire to harm self or others. Onset of symptoms was December 07, 2022. 09:59 Method Of Arrival: Ambulatory jl7 09:59 Acuity: ARIEL 3 jl7 Triage Assessment: 10:03 General: Appears in no apparent distress. uncomfortable, Behavior is calm, cooperative, jl7 appropriate for age. Pain: Denies pain. : Reports burning with urination. Historical: - Allergies: 10:03 Codeine; jl7 - Home Meds: 10:03 Ramipril Oral [Active]; jl7 - PMHx: 10:03 Hypertension; jl7 - Immunization history:: Adult Immunizations unknown. - Social history:: Smoking status: Patient denies any tobacco usage or history of. Screenin:02 [facility] ED Fall Risk Assessment (Adult) History of falling in the last 3 months, db including since admission No falls in past 3 months (0 pts) Confusion or Disorientation No (0 pts) Intoxicated or Sedated No (0 pts) Impaired Gait No (0 pts) Mobility Assist Device Used No (0 pt) Altered Elimination No (0 pt) Score/Fall Risk Level 0 - 2 = Low Risk Oriented to surroundings, Maintained a safe environment. Abuse screen: Denies threats or abuse. Denies injuries from another. Nutritional screening: No deficits noted. Tuberculosis screening: No symptoms or risk factors identified. Assessment: 11:15 Reassessment: patient ambulatory to restroom. db 11:35 Reassessment: patient refused cath. States is unable to obtain urine specimen in cup. db Patient urinated in hat. States used wipes prior to urination. 12:00 Reassessment: Patient appears in no apparent distress at this time. Patient and/or db family updated on plan of care and expected duration. Pain level reassessed. Patient is alert, oriented x 3, equal unlabored respirations, skin warm/dry/pink. back chronic back pain. states has kidney infection. General: Appears in no apparent distress. comfortable, Behavior is calm, cooperative. Neuro: Level of Consciousness is awake, alert, obeys commands, Oriented to person, place, time, situation. 12:35 Reassessment: Patient appears in no apparent distress at this time. patient to CT. db 12:51 Reassessment: Pt agitated, reports "I am fine. There is nothing wrong with me." Pt's jl7 family at bedside and reports pt is not herself, pt is normally nice and easy going. This nurse able to get verbal consent from pt to obtain a head CT. This nurse accompanied pt to CT with assembler dc field yoke for head CT. 13:25 Reassessment: Patient appears in no apparent distress at this time. Patient and/or db family updated on plan of care and expected duration. Pain level reassessed. Patient is alert, oriented x 3, equal unlabored respirations, skin warm/dry/pink. General: Appears in no apparent distress. comfortable. Vital Signs: 09:59 BP 170 / 67; Pulse 61; Resp 15; Temp 97.9; Pulse Ox 96% ; Weight 63.5 kg; Height 4 ft. jl7 11 in. ; Pain 0/10; 12:39 BP 180 / 62; Pulse 61; Resp 16; Pulse Ox 99% on R/A; db 13:19 BP 170 / 70; Pulse 64; Resp 16; Pulse Ox 99% on R/A; db 09:59 Body Mass Index 28.28 (63.50 kg, 149.86 cm) jl7 09:59 Pain Scale: Adult jl7 ED Course: 09:19 Patient arrived in ED. ts1 09:21 Garrett López MD is Attending Physician. bs3 10:03 Triage completed. jl7 10:03 Arm band placed on right wrist. jl7 10:35 Steph Nance, RN is Primary Nurse. db 10:45 Missed attempt(s): 22 gauge in left antecubital area. by Kathrine electrical instrumentation technician. db 10:50 Urine collected: clean catch specimen, clear. jl7 11:32 Missed attempt(s): 22 gauge in right antecubital area. Bleeding controlled, band aid db applied, catheter tip intact. 11:40 Initial lab(s) drawn, by me. db 11:40 Missed attempt(s): 22 gauge in right hand. db 12:20 Lab(s) recollected, by me, sent to lab. Inserted saline lock: 22 gauge in right jl7 forearm, using aseptic technique. Blood collected. 12:45 CT Head Brain wo Cont In Process Unspecified. EDMS 13:25 Patient has correct armband on for positive identification. Bed in low position. Call db light in reach. Side rails up X 1. 13:26 Naun Mckinney MD is Referral Physician. bs3 13:38 No provider procedures requiring assistance completed. IV discontinued, intact, db bleeding controlled, No redness/swelling at site. Administered Medications: 12:35 Drug: NS 0.9% IV 1000 ml Route: IV; Rate: 1 bolus; Site: right wrist; db 13:38 Follow up: Response: No adverse reaction; IV Status: Completed infusion; IV Intake: db 1000ml Medication: 12:51 VIS not applicable for this client. jl7 Intake: 13:38 IV: 1000ml; Total: 1000ml. db Outcome: 13:25 Discharge ordered by . bs3 13:37 Discharged to home ambulatory. db 13:37 Discharged to home with family. 13:37 Condition: stable 13:37 Discharge instructions given to patient, family, Instructed on discharge instructions, follow up and referral plans. 13:38 Patient left the ED. db Signatures: Dispatcher [employer] EDMS Carlos Enriquez RN RN jl7 Garrett López MD MD bs3 Steph Nance, RN RN db Ne Werner PAS PAS ts1
--- NOTE | 2022-12-12 13:26 | EDPHYS ---
Physician Documentation [facility] Name: Sandra Gusman Age: 87 yrs Sex: Female : 1935 Arrival Date: 12/12/2022 Time: 09:15 Bed 19 Private MD: ED Physician Garrett López HPI: 12/12 09:47 This 87 yrs old Female presents to ER via Unassigned with complaints of bs3 "urinary tract infection". 09:47 87yo hx of htn presents with urinary frequency and burning. She was seen at bs3 prescribed nitrofurontoin switched to bactrim on Thursday but still with persistent symptoms. Denies fever or chills, but per daughter and son she has personality changes and is angry. Pt denies this being the case and states she has no other complaints. . Historical: - Allergies: 10:03 Codeine; jl7 - Home Meds: 10:03 Ramipril Oral [Active]; jl7 - PMHx: 10:03 Hypertension; jl7 - Immunization history:: Adult Immunizations unknown. - Social history:: Smoking status: Patient denies any tobacco usage or history of. ROS: 09:48 Constitutional: Negative for fever, chills bs3 09:48 All other systems are negative. Exam: 09:48 Constitutional: This is a well developed, well nourished patient who is awake, alert, bs3 and in no acute distress. Head/Face: Normocephalic, atraumatic. Eyes: Pupils equal round and reactive to light, extra-ocular motions intact. Lids and lashes normal. ENT: mmm, no posterior phyarngeal erythema Neck: Trachea midline, no thyromegaly, no neck stiffness Chest/axilla: Normal chest wall appearance and motion. Nontender with no deformity. No lesions are appreciated. Cardiovascular: Regular rate and rhythm with a normal S1 and S2. symmetric pulses in upper extremities Abdomen/GI: Soft, non-tender, no rebound or guarding, no cva tenderness MS/ Extremity: Pulses equal, no cyanosis. Neurovascular intact. Full, normal range of motion. Neuro: Awake and alert, GCS 15, oriented to person, place, time, and situation. Cranial nerves II-XII grossly intact. Motor strength 5/5 in all extremities. Sensory grossly intact. Vital Signs: 09:59 BP 170 / 67; Pulse 61; Resp 15; Temp 97.9; Pulse Ox 96% ; Weight 63.5 kg; Height 4 ft. jl7 11 in. ; Pain 0/10; 12:39 BP 180 / 62; Pulse 61; Resp 16; Pulse Ox 99% on R/A; db 13:19 BP 170 / 70; Pulse 64; Resp 16; Pulse Ox 99% on R/A; db 09:59 Body Mass Index 28.28 (63.50 kg, 149.86 cm) jl7 09:59 Pain Scale: Adult jl7 MDM: 09:21 Patient medically screened. bs3 09:48 Data reviewed: vital signs, nurses notes. ED course: possible uti, family considered bs3 about dehydration, will eval for electroloyte abnormality, pt has decreased appetite will reassess. 13:19 ED course: ua neg, I reviewed outside culture, >100,000 cfu gram positive cocci no bs3 sensitibity, possible vaginal luis, ua here improved, labs neg for acute pathology therefore a ct was done. per my interepretation of the ct brain there is no mass/ich., pt requesting to be discharged home, will dc if workup neg. 13:25 ED course: CT notable for possible basal ganglia subacute stroke advise follow-up with 3 neurology for further work-up patient is unwilling to stay in the hospital currently. 12/12 09:46 Order name: CBC with Diff; Complete Time: 12:09 [facility] 12/12 09:46 Order name: Comprehensive Metabolic Panel; Complete Time: 13:03 [facility] 12/12 09:46 Order name: Urinalysis w/ reflexes; Complete Time: 12:09 [facility] 12/12 12:10 Order name: CT Head Brain wo Cont; Complete Time: 13:24 [facility] 12/12 12:03 Order name: Labs - recollect needed: recollect chemistries/ hemolyzed; Complete Time: eb 12:35 Administered Medications: 12:35 Drug: NS 0.9% IV 1000 ml Route: IV; Rate: 1 bolus; Site: right wrist; db 13:38 Follow up: Response: No adverse reaction; IV Status: Completed infusion; IV Intake: db 1000ml Disposition Summary: 12/12/22 13:25 Discharge Ordered Location: Home bs3 Problem: new bs3 Symptoms: are unchanged bs3 Condition: Stable bs3 Diagnosis - Dysuria bs3 Followup: bs3 - With: Private Physician - When: 2 - 3 days - Reason: Re-evaluation by your physician Followup: bs3 - With: Naun Mckinney MD - When: 5 - 6 days - Reason: Recheck today's complaints Discharge Instructions: - Discharge Summary Sheet bs3 - Dysuria bs3 Forms: - Medication Reconciliation Form bs3 - Thank You Letter bs3 - Antibiotic Education bs3 - Prescription Opioid Use bs3 Signatures: Dispatcher [employer] Carlos Pickens RN RN jl7 Brandie Callahan Brandon, MD MD bs3 Steph Nance RN RN db Corrections: (The following items were deleted from the chart) 09:51 09:47 87yo hx of htn presents with urinary frequency and burning. She was seen at bs3 prescribed nitrofurontoin . bs3
[2022-12-12 13:44] VITALS: TEMP 97.9
[2022-12-12 13:46] VITALS: O2SAT 99
[2022-12-12 13:48] VITALS: BP 170/70
== END 2022-12-12 13:38 | disposition home or self-care (01) ==
LOC: ER 09:15
DX: R30.0 Dysuria (principal); I10 Essential (primary) hypertension; Z88.5 Allergy status to narcotic agent
CPT/HCPCS: 85025; 81001; 36415; 80053; 70450; 96360; 99284; J7030